=== PATIENT | male | born 1955 | race Caucasian/White ===

== ENCOUNTER → 2017-08-08 | Outpatient (CLI) | payer BC ==
[~2017-08-08] MED LIST: ASPI-435 PO; ATOR-26 PO; NTRSLP4 SL; PANT40TA2 PO; PLV75 PO; TPRSR25 PO
[2017-08-08 13:47] LABS: BASO % 0.4 %; BASO ABS # 0.03 K/uL (0-0.2); COMPLETE YES; EOS % 0.9 %; HEMATOCRIT 42.1 % (42-52); IG% 0.5 %; LYMPH % 29.8 %; LYMPH ABS # 2.21 K/uL (1.2-3.4); MEAN CELL VOLUME 90.7 fL (80-100); MEAN CORPUSCULAR HEMOGLOBIN 30.8 pg (25-34); MEAN PLATELET VOLUME 11.5 fL (7.4-10.4); MONO % 7.3 %; NEUT % 61.1 %; PLATELET COUNT 187 K/uL (130-400); RED BLOOD COUNT 4.64 M/uL (4.7-6.1); WHITE BLOOD COUNT 7.41 K/uL (4.8-10.8)
[2017-08-08 13:56] LABS: ESTIMATED AVERAGE GLUCOSE 108 mg/dl; HA1C FLAG Normal (Normal)
[2017-08-08 15:07] LABS: PROSTATE SPECIFIC ANTIGEN 2.59 ng/ml (0.000-4.000); THYROID STIMULATING HORMONE 1.03 uIu/ml (0.300-4.500); URIC ACID 4.3 mg/dl (2.6-7.2)
[2017-08-08 15:08] LABS: ALB/GLOB RATIO 1.3 (0.9-2); ALKALINE PHOSPHATASE 83 U/L (45-117); ALT/SGPT 53 U/L (12-78); AST/SGOT 25 U/L (15-37); BLOOD UREA NITROGEN 9 mg/dl (7-18); CALCIUM 8.7 mg/dl (8.5-10.1); CARBON DIOXIDE 23 mmol/L (21-32); CHLORIDE 109 mmol/L (98-107); CREATININE 0.71 mg/dl (0.60-1.40); GLUCOSE 99 mg/dl (70-99); POTASSIUM 4.2 mmol/L (3.5-5.1); SODIUM 141 mmol/L (136-145)
== END | disposition home or self-care (01) ==
LOC: C.LABBC 10:44
PROVIDERS: ATTEND Physician Assistant
DX: I25.10 Atherosclerotic heart disease of native coronary artery without angina pectoris (principal); R73.09 Other abnormal glucose; E55.9 Vitamin D deficiency, unspecified; D51.9 Vitamin B12 deficiency anemia, unspecified; E78.9 Disorder of lipoprotein metabolism, unspecified; R53.83 Other fatigue

== ENCOUNTER → 2018-01-14 | Outpatient (CLI) | payer OTHER ==
[2018-01-14 16:02] LABS: BASO % 0.5 %; BASO ABS # 0.05 K/uL (0-0.2); EOS ABS # 0.09 K/uL (0-0.5); HEMATOCRIT 42.1 % (42-52); HEMOGLOBIN 15.1 g/dL (14.0-18.0); IG# 0.04 K/uL (0.00-0.02); LYMPH % 24.3 %; LYMPH ABS # 2.27 K/uL (1.2-3.4); MEAN CELL VOLUME 88.6 fL (80-100); MEAN CORPUSCULAR HEMOGLOBIN 31.8 pg (25-34); MEAN PLATELET VOLUME 11.8 fL (7.4-10.4); MONO % 6.5 %; MONO ABS # 0.61 K/uL (0.11-0.59); NEUT % 67.3 %; NEUT ABS # 6.28 K/uL (1.4-6.5); PLATELET COUNT 206 K/uL (130-400); RED CELL DISTRIBUTION WIDTH CV 12.3 % (11.5-14.5); RED CELL DISTRIBUTION WIDTH SD 39.4 fL (36.4-46.3); WHITE BLOOD COUNT 9.34 K/uL (4.8-10.8)
[2018-01-14 16:20] LABS: MEAN CORPUSCULAR HGB CONC 35.9 g/dl (32-36)
== END | disposition home or self-care (01) ==
LOC: C.LABSPEC 15:41
PROVIDERS: ATTEND Family Medicine
DX: R73.09 Other abnormal glucose (principal); E55.9 Vitamin D deficiency, unspecified; D51.9 Vitamin B12 deficiency anemia, unspecified; E78.9 Disorder of lipoprotein metabolism, unspecified; R53.83 Other fatigue

== ENCOUNTER → 2018-01-14 | Outpatient (CLI) | payer OTHER ==
--- NOTE | 2018-01-14 13:24 | DIAGNOSTIC IMAGING REPORT ---
CHEST 2 VIEWS ROUTINE HISTORY: 63 years-old Male DYSPNEA acute cough with shortness of breath COMPARISON: Chest radiograph 12/16/2015 TECHNIQUE: PA and lateral views of the chest FINDINGS: Cardiomediastinal and hilar silhouettes are within normal limits. There is no pneumothorax, pleural effusion, focal airspace consolidation or overt pulmonary edema. The bones of the chest appear grossly intact. IMPRESSION: No acute process. The above report was generated using voice recognition software. It may contain grammatical, syntax or spelling errors. Electronically signed by: Wood Paredes M.D. 01/14/2018 1:23 PM Dictated Date/Time: 01/14/2018 1:22 PM
== END | disposition home or self-care (01) ==
LOC: C.RAD1850 12:32
PROVIDERS: ATTEND Family Medicine
DX: R06.00 Dyspnea, unspecified (principal)

== ENCOUNTER 2018-01-19 14:26 | Emergency (ER) | payer OTHER ==
[~2018-01-19] VITALS: Ht 177.8 cm; Wt 94.3 kg
[2018-01-19 14:30] VITALS: TEMP 37; Ht 177.8 cm; Wt 94.3 kg
[2018-01-19] MEDS ORDERED: ASPIRIN 81 MG CHEW PO STA (14:45)
[2018-01-19 14:59] LABS: BASO % 0.3 %; BASO ABS # 0.02 K/uL (0-0.2); EOS % 0.9 %; EOS ABS # 0.07 K/uL (0-0.5); HEMATOCRIT 41.2 % (42-52); HEMOGLOBIN 14.3 g/dL (14.0-18.0); IG# 0.03 K/uL (0.00-0.02); LYMPH % 29.6 %; LYMPH ABS # 2.32 K/uL (1.2-3.4); MEAN CORPUSCULAR HEMOGLOBIN 30.6 pg (25-34); MEAN CORPUSCULAR HGB CONC 34.7 g/dl (32-36); MEAN PLATELET VOLUME 10.8 fL (7.4-10.4); MONO % 7.6 %; NEUT % 61.2 %; NEUT ABS # 4.81 K/uL (1.4-6.5); PLATELET COUNT 186 K/uL (130-400); RED CELL DISTRIBUTION WIDTH CV 12.4 % (11.5-14.5); RED CELL DISTRIBUTION WIDTH SD 39.6 fL (36.4-46.3); WHITE BLOOD COUNT 7.85 K/uL (4.8-10.8)
[2018-01-19] MEDS ORDERED: RANI150T85 PO (15:09)
[2018-01-19] MEDS ORDERED: PROB1TAB16 PO (15:09)
[2018-01-19] MEDS ORDERED: CLOP1TAB5 PO (15:09)
[2018-01-19] MEDS ORDERED: VTMB12100 PO (15:09)
[2018-01-19 15:17] LABS: POTASSIUM 3.7 mmol/L (3.5-5.1); SODIUM 140 mmol/L (136-145)
[2018-01-19 15:22] LABS: ALBUMIN 3.7 gm/dl (3.4-5.0); ALT/SGPT 43 U/L (12-78); AST/SGOT 22 U/L (15-37); BLOOD UREA NITROGEN 14 mg/dl (7-18); CARBON DIOXIDE 25 mmol/L (21-32); CREATININE 0.72 mg/dl (0.60-1.40); GLUCOSE 119 mg/dl (70-99)
--- NOTE | 2018-01-19 15:30 | DIAGNOSTIC IMAGING REPORT ---
CHEST ONE VIEW PORTABLE CLINICAL HISTORY: 63 years-old Male presenting with chest pain. TECHNIQUE: Portable upright AP view of the chest was obtained. COMPARISON: 01/14/2018. FINDINGS: Cardiomediastinal silhouette normal. No focal opacity. No large effusion or pneumothorax. Osseous structures normal. Upper abdomen normal. IMPRESSION: 1. No acute cardiopulmonary disease. Electronically signed by: Ming Benavides M.D. 01/19/2018 3:29 PM Dictated Date/Time: 01/19/2018 3:28 PM
[2018-01-19 15:33] LABS: ALKALINE PHOSPHATASE 89 U/L (45-117); TOTAL PROTEIN 6.6 gm/dl (6.4-8.2)
--- NOTE | 2018-01-19 15:38 | EMERGENCY ROOM VISIT NOTE ---
History Report prepared by Xiang: Melanie Cerda Under the Supervision of: Dr. Diane Arcos M.D. First contact with patient: 14:44 Chief Complaint: CARDIAC ASSESSMENT Stated Complaint: FATIGUE, CHEST TIGHTNESS, COUGHING History of Present Illness The patient is a 63 year old male who presents to the Emergency Room for a cardiac assessment. The patient states that he had a heart attack 2 years ago. He reports that he did not experience any chest pain with it and only had shortness of breath. The patient reports that 2 months ago he had a sinus infection and has had a cough since. He reports that the sinus infection has cleared up, but notes he still has post nasal drip that he has had all his life. He states that when he got up this morning he couldn't stop coughing, though it was nonproductive. He reports that since then his face and arms have felt slightly numb and he has had difficulty breathing because his chest feels tight. He reports that he ignored it because this is not unusual for him. He states that after being up for half an hour, he became extremely fatigued. He reports that at this time he went to lie down and then started thinking that he should come get checked out to be safe. He notes that this is not the first time the fatigue has happened and he has seen his PCP for it. He notes that he scheduled an echocardiogram on Sunday for it because his PCP thinks he may have a slight murmur. The patient denies missing his medications this morning, hematochezia, weight loss, taking a Nitroglycerin, and a history of blood clots. He notes that he did take his baby aspirin and blood thinners this morning. Source of History: patient Onset: this morning Position: other (global) Quality: other (tightness) Timing: other (episode) Associated Symptoms: + cough, + SOB, + fatigue, + numbness, No hematochezia Note: The patient denies weight loss. Review of Systems See HPI for pertinent positives & negatives. A total of 10 systems reviewed and were otherwise negative. Past Medical & Surgical Medical Problems: (1) Acute MT (2) Anal fissure (3) Back spasm (4) Constipation (5) Dyslipidemia (6) Flank pain (7) Flank pain (8) GERD (gastroesophageal reflux disease) (9) Hypokalemia (10) Hypomagnesemia (11) Kidney stone (12) Kidney stone (13) Kidney stone (14) Liver cyst (15) Metabolic acidosis (16) Seasonal allergies (17) Vasovagal syncope Family History Cancer Diabetes mellitus FH: seizures Gallbladder disease Malignancy Social History Smoking Status: Former Smoker Alcohol Use: occasionally Marital Status: Housing Status: lives with significant other Occupation Status: employed Current/Historical Medications Scheduled Aspirin (Aspirin 81), 81 MG PO DAILY Atorvastatin (Lipitor), 80 MG PO DAILY Clopidogrel Bisulfate (Plavix), 75 MG PO DAILY Cyanocobalamin (Vitamin B-12), 1 TAB PO DAILY Probiotic Product (Probiotic), 1 TAB PO DAILY Ranitidine (Zantac), 150 MG PO BID Scheduled PRN Nitroglycerin (Nitrostat), 0.4 MG SL UD PRN for Chest Pain Allergies Coded Allergies: No Known Allergies (Unverified , 01/19/18) Physical Exam Vital Signs Date Time Temp Pulse Resp B/P (MAP) Pulse Ox O2 Delivery O2 Flow Rate FiO2 01/19/18 18:01 77 20 124/86 100 01/19/18 17:05 108/66 01/19/18 16:56 66 5 01/19/18 16:26 69 12 97 01/19/18 15:56 64 9 96 01/19/18 15:26 69 19 94 01/19/18 14:56 73 11 94 01/19/18 14:39 72 01/19/18 14:37 131/73 01/19/18 14:30 37.0 79 18 132/73 97 Room Air Physical Exam Vital signs reviewed. General: Well-appearing, in no significant distress. HEENT: No scleral icterus, PERRLA, neck supple. Atraumatic. Cardiovascular: Regular rate and rhythm, no extra sounds. Pulmonary: Clear to auscultation bilaterally, normal work of breathing. Abdomen: Soft, nontender, nondistended, positive bowel sounds. Musculoskeletal: Atraumatic, no peripheral edema. Neurologic: Patient awake alert and oriented x 3, full strength in all 4 extremities. Cranial nerves 2 through 12 grossly intact. Skin: Warm, dry, no rash Medical Decision & Procedures ER Provider Diagnostic Interpretation: Radiology results as stated below per my review and radiologist interpretation: CHEST ONE VIEW PORTABLE CLINICAL HISTORY: 63 years-old Male presenting with chest pain. TECHNIQUE: Portable upright AP view of the chest was obtained. COMPARISON: 01/14/2018. FINDINGS: Cardiomediastinal silhouette normal. No focal opacity. No large effusion or pneumothorax. Osseous structures normal. Upper abdomen normal. IMPRESSION: 1. No acute cardiopulmonary disease. Electronically signed by: Ming Benavides M.D. 01/19/2018 3:29 PM Dictated Date/Time: 01/19/2018 3:28 PM Laboratory Results 01/19/18 14:50 Red Blood Count 4.68, Mean Corpuscular Volume 88.0, Mean Corpuscular Hemoglobin 30.6, Mean Corpuscular Hemoglobin Concent 34.7, Mean Platelet Volume 10.8, Neutrophils (%) (Auto) 61.2, Lymphocytes (%) (Auto) 29.6, Monocytes (%) (Auto) 7.6, Eosinophils (%) (Auto) 0.9, Basophils (%) (Auto) 0.3, Neutrophils # (Auto) 4.81, Lymphocytes # (Auto) 2.32, Monocytes # (Auto) 0.60, Eosinophils # (Auto) 0.07, Basophils # (Auto) 0.02 01/19/18 14:50 Test 01/19/18 14:50 01/19/18 16:39 White Blood Count 7.85 K/uL (4.8-10.8) Red Blood Count 4.68 M/uL (4.7-6.1) Hemoglobin 14.3 g/dL (14.0-18.0) Hematocrit 41.2 % (42-52) Mean Corpuscular Volume 88.0 fL (80-100) Mean Corpuscular Hemoglobin 30.6 pg (25-34) Mean Corpuscular Hemoglobin Concent 34.7 g/dl (32-36) Platelet Count 186 K/uL (130-400) Mean Platelet Volume 10.8 fL (7.4-10.4) Neutrophils (%) (Auto) 61.2 % Lymphocytes (%) (Auto) 29.6 % Monocytes (%) (Auto) 7.6 % Eosinophils (%) (Auto) 0.9 % Basophils (%) (Auto) 0.3 % Neutrophils # (Auto) 4.81 K/uL (1.4-6.5) Lymphocytes # (Auto) 2.32 K/uL (1.2-3.4) Monocytes # (Auto) 0.60 K/uL (0.11-0.59) Eosinophils # (Auto) 0.07 K/uL (0-0.5) Basophils # (Auto) 0.02 K/uL (0-0.2) RDW Standard Deviation 39.6 fL (36.4-46.3) RDW Coefficient of Variation 12.4 % (11.5-14.5) Immature Granulocyte % (Auto) 0.4 % Immature Granulocyte # (Auto) 0.03 K/uL (0.00-0.02) Anion Gap 6.0 mmol/L (3-11) Est Creatinine Clear Calc Drug Dose 124.2 ml/min Estimated GFR () 116.7 Estimated GFR (Non- 100.7 BUN/Creatinine Ratio 18.7 (10-20) Calcium Level 8.0 mg/dl (8.5-10.1) Total Bilirubin 0.5 mg/dl (0.2-1) Direct Bilirubin 0.1 mg/dl (0-0.2) Aspartate Amino Transf (AST/SGOT) 22 U/L (15-37) Alanine Aminotransferase (ALT/SGPT) 43 U/L (12-78) Alkaline Phosphatase 89 U/L (45-117) Total Creatine Kinase 69 U/L (39-308) Total Protein 6.6 gm/dl (6.4-8.2) Albumin 3.7 gm/dl (3.4-5.0) Thyroid Stimulating Hormone (TSH) 0.696 uIu/ml (0.300-4.500) Troponin I < 0.015 ng/ml (0-0.045) Laboratory results per my review. Medications Administered Medications (Trade) Dose Ordered Sig/Ana Route Start Time Stop Time Status Last Admin Dose Admin Aspirin (Aspirin Chew) 243 mg NOW STAT PO 01/19/18 14:45 01/19/18 14:47 DC 01/19/18 15:04 243 MG Albuterol (Ventolin Hfa Inhaler) 2 puffs NOW ONCE INH 01/19/18 16:30 01/19/18 16:31 DC 01/19/18 17:07 2 PUFFS ECG Per My Interpretation Indication: SOB/dyspnea Rate (beats per minute): 71 Findings: no acute ischemic change, no ectopy, other (qt-c [id number]) ED Course 1452: Past medical records reviewed. The patient was evaluated in room C8. A complete history and physical examination was performed. 1445: Ordered Aspirin 243 mg PO. 1625: I reevaluated the patient and updated him on his results. I notified him we are going to get a repeat troponin. 1630: Ordered Albuterol 2 puffs INH. 1732: Upon reevaluation, the patient appeared to have improvement of his symptoms. I discussed findings with him. He verbalized agreement of the treatment plan. The patient was discharged home. Medical Decision Differential diagnosis: Etiologies such as cardiac ischemia, aortic dissection, pulmonary embolism, pneumonia, pneumothorax, musculoskeletal, infections, pericarditis, myocarditis , esophageal rupture, gastrointestinal, as well as others were entertained. This patient was evaluated and appeared to be in no significant distress. He was given 3 baby aspirin as he does take 1 daily. Patient's chest x-ray was obtained and is clear. EKG reveals no evidence of acute ischemia. Troponin is negative 2. TSH is normal. I do suspect the patient is having difficulty with sleep apnea which may explain his fatigue periodically. He does have a remote history of smoking however there is no evidence of mass on chest x-ray. Patient may be suffering from postnasal drip, reactive airway disease or GERD as an etiology to his cough. Patient has follow-up with his PCP and a stress test scheduled in several days. He was advised against strenuous exercise until he has the stress test performed. He was discharged with an albuterol inhaler to be used 2 puffs every 4 hours as needed for cough or wheezing. The patient will return to the emergency department for worsening of symptoms or any medical concerns. Medication Reconcilliation Current Medication List: was personally reviewed by me Blood Pressure Screening Patient's blood pressure: Normal blood pressure Blood pressure disposition: Did not require urgent referral Impression Primary Impression: CAD (coronary artery disease) Additional Impressions: Fatigue Cough Scribe Attestation The scribe's documentation has been prepared under my direction and personally reviewed by me in its entirety. I confirm that the note above accurately reflects all work, treatment, procedures, and medical decision making performed by me. Departure Information Dispostion Home / Self-Care Referrals Kapil Connell M.D. (PCP) Forms IMPORTANT VISIT INFORMATION Patient Instructions My [facility] Additional Instructions Diagnosis: Fatigue, coronary artery disease Please follow-up for your stress test on Sunday as scheduled. Continue your medications as prescribed. Contact your primary care physician for reevaluation. Please consider a sleep study and/or pulmonary function tests. Albuterol 2 puffs every 4 hours as needed for cough or shortness of breath. Return to the emergency department for worsening of symptoms or any medical concerns. Problem Qualifiers
[2018-01-19] MEDS ORDERED: ALBUTEROL HFA 8 GM INHALER INH ONE (16:30)
[2018-01-19 18:01] VITALS: BP 124/86; PULSE 77; O2SAT 100
== END 2018-01-19 18:02 | disposition home or self-care (01) ==
LOC: C.EDB 14:27 → C.EDC 18:02
DX: I25.10 Atherosclerotic heart disease of native coronary artery without angina pectoris (principal); R53.83 Other fatigue; R05 Cough; K21.9 Gastro-esophageal reflux disease without esophagitis; E87.6 Hypokalemia; I25.2 Old myocardial infarction; E78.5 Hyperlipidemia, unspecified; E83.42 Hypomagnesemia; Z87.891 Personal history of nicotine dependence; Z79.82 Long term (current) use of aspirin; Z79.02 Long term (current) use of antithrombotics/antiplatelets; Z79.899 Other long term (current) drug therapy

== ENCOUNTER → 2018-01-21 | Outpatient (CLI) | payer OTHER ==
[~2018-01-21] MED LIST changes: +CLOP1TAB5 PO; +PROB1TAB16 PO; +RANI150T85 PO; +VTMB12100 PO
--- NOTE | 2018-01-21 17:15 | ECHOCARDIOGRAM REPORT ---
*NOTICE TO RECEIVING DEMOCRAT AGENCY This information is strictly Confidential and protected under [place] law. [place] law prohibits you from making any further disclosure of this information unless further disclosure is expressly permitted by the written consent of the person to whom it pertains or is authorized by law. A general authorization for the release of medical or other information is not sufficient for this purpose. Hospital accepts no responsibility if the information is made available to any other person, INCLUDING THE PATIENT. Interpretation Summary * Name: PEÑA SAMANO Study Date: 01/21/2018 02:10 PM BP: 119/73 mmHg * Patient Location: [facility] HR: 80 * : 1955 (M/d/yyyy) Gender: Male Height: 70 in * Age: 63 yrs Ethnicity: CA Weight: 205 lb * Ordering Physician: Kapil Connell MD * Performed By: Dai Mayen RDCS * * Reason For Study: Shortness of breath, murmur * BSA: 2.1 m2 * -- Conclusions -- * Left ventricular systolic function is normal. * Diastolic dysfunction, Grade II (pseudonormalization pattern). * Right ventricular systolic pressure is normal. * Compared to an echocardiogram from 12/16/2015, there is stage II diastolic dysfunction, but no significant valvular disease or other changes. Procedure Details * A complete two-dimensional transthoracic echocardiogram was performed (2D, M-mode, Doppler and color flow Doppler). Left Ventricle * The left ventricle is normal in size. * There is normal left ventricular wall thickness. * Ejection Fraction = 60-65%. * Left ventricular systolic function is normal. * Diastolic dysfunction, Grade II (pseudonormalization pattern). * The left ventricular wall motion is normal. Right Ventricle * The right ventricle is normal in size and function. * The right ventricular systolic function is normal as assessed by tricuspid annular plane systolic excursion (TAPSE) (normal >1.5 cm). Atria * The left atrial size is normal. * Right atrial size is normal. Mitral Valve * The mitral valve is grossly normal. * Significant mitral regurgitation is absent. Tricuspid Valve * The tricuspid valve is not well visualized, but is grossly normal. * There is trace tricuspid regurgitation. * Right ventricular systolic pressure is normal. Aortic Valve * The aortic valve is normal in structure and function. * The aortic valve is trileaflet. * No hemodynamically significant valvular aortic stenosis. * There is no significant aortic regurgitation. Pulmonic Valve * The pulmonic valve is not well visualized. Pericardium/Pleural * There is no pericardial effusion. MMode 2D Measurements and Calculations IVSd 1.1 cm LVIDd 4.3 cm LVIDs 2.8 cm LVPWd 0.96 cm IVS/LVPW 1.1 FS 34.9 % EDV(Teich) 81.6 ml ESV(Teich) 29.0 ml EF(Teich) 64.5 % EDV(cubed) 77.7 ml ESV(cubed) 21.4 ml EF(cubed) 72.4 % LV mass(C)d 145.7 grams LV mass(C)dI 69.1 grams/m\S\2 SV(Teich) 52.6 ml SI(Teich) 24.9 ml/m\S\2 SV(cubed) 56.3 ml SI(cubed) 26.7 ml/m\S\2 Ao root diam 3.5 cm Ao root area 9.9 cm\S\2 ACS 2.2 cm LA dimension 3.1 cm asc Aorta Diam 3.0 cm LA/Ao 0.87 LVOT diam 2.0 cm LVOT area 3.1 cm\S\2 LVAd ap4 23.7 cm\S\2 LVLd ap4 7.5 cm EDV(MOD-sp4) 61.1 ml EDV(sp4-el) 63.2 ml LVAs ap4 13.3 cm\S\2 LVLs ap4 6.8 cm ESV(MOD-sp4) 21.6 ml ESV(sp4-el) 22.0 ml EF(MOD-sp4) 64.7 % EF(sp4-el) 65.3 % LVAd ap2 23.7 cm\S\2 LVLd ap2 7.8 cm EDV(MOD-sp2) 59.8 ml EDV(sp2-el) 60.7 ml LVAs ap2 12.7 cm\S\2 LVLs ap2 6.5 cm ESV(MOD-sp2) 20.5 ml ESV(sp2-el) 21.0 ml EF(MOD-sp2) 65.7 % EF(sp2-el) 65.4 % LVLd %diff 3.6 % EDV(MOD-bp) 62.1 ml LVLs %diff -4.80 % ESV(MOD-bp) 21.1 ml EF(MOD-bp) 66.0 % SV(MOD-sp4) 39.6 ml SI(MOD-sp4) 18.8 ml/m\S\2 SV(MOD-sp2) 39.3 ml SI(MOD-sp2) 18.7 ml/m\S\2 SV(MOD-bp) 41.0 ml SI(MOD-bp) 19.4 ml/m\S\2 SV(sp4-el) 41.3 ml SI(sp4-el) 19.6 ml/m\S\2 SV(sp2-el) 39.7 ml SI(sp2-el) 18.8 ml/m\S\2 Doppler Measurements and Calculations MV E max randall 85.9 cm/sec MV A max randall 78.1 cm/sec MV E/A 1.1 MV dec time 0.19 sec Ao V2 max 132.0 cm/sec Ao max PG 7.0 mmHg Ao max PG (full) 2.3 mmHg LAVINIA(V,A) 2.6 cm\S\2 LAVINIA(V,D) 2.6 cm\S\2 LV V1 max PG 4.7 mmHg LV V1 max 108.2 cm/sec PA V2 max 138.5 cm/sec PA max PG 7.7 mmHg PA acc slope 557.6 cm/sec\S\2 PA acc time 0.15 sec TR max randall 93.0 cm/sec PA pr(Accel) 12.5 mmHg
== END | disposition home or self-care (01) ==
LOC: C.CPL 13:53
PROVIDERS: ATTEND Family Medicine
DX: R06.02 Shortness of breath (principal); R01.1 Cardiac murmur, unspecified

== ENCOUNTER 2025-08-29 13:42 | Observation (INO) ==
--- NOTE | 2025-08-29 13:58 | Emergency Department Note ---
Impression & Plan Dark stools, Anemia ED Provider Note NAME: PEÑA SAMANO AGE: 70 SEX: M : 1955 ARRIVES VIA: Walk-In INFORMANT: Patient ED PROVIDER(S): Selvin Kraft DO CHIEF COMPLAINT: Black/purple stools HPI: Patient is a 70-year-old male who takes Plavix with a past medical history of migraines, CAD, dyslipidemia who presents to the ER for dark black stools. Patient notes that this has been present since this past Sunday and . Denies any headache or change in vision. No chest pain or shortness of breath. No nausea, vomiting, or diarrhea. No dysuria, urgency, or frequency. No other exacerbating or remitting factors. He has never had this before. He has had a colonoscopy and EGD previously which were fairly unremarkable. No history of liver failure or cirrhosis or varices per patient. ADDITIONAL HISTORY OBTAINED: Per HPI Chronic Medical/Social Conditions Affecting Care: Per HPI PAST MEDICAL HISTORY:See Below PAST SURGICAL HISTORY:See Below FAMILY HISTORY:See Below SOCIAL HISTORY:See Below HOME MEDICATIONS:See Below ALLERGIES:See Below VITALS:See Below PHYSICAL EXAMINATION: GENERAL: Sitting up in bed, alert, well appearing, well nourished, no distress, non-toxic EYE EXAM: normal conjunctiva. PERRL and EOM's grossly intact. OROPHARYNX: no exudate, no erythema, lips, buccal mucosa, and tongue normal and mucous membranes are moist NECK: supple, no nuchal rigidity, no adenopathy, non-tender LUNGS: Clear to auscultation. Normal chest wall mechanics HEART: no murmurs, S1 normal and S2 normal ABDOMEN: abdomen soft, non-tender, normo-active bowel sounds, no masses, no rebound or guarding. UPPER EXTREMITIES: upper extremities are grossly normal. LOWER EXTREMITIES: No pitting edema. NEURO EXAM: Normal sensorium, cranial nerves II-XII grossly intact, normal speech, no gross weakness of arms, no gross weakness of legs. MEDICAL DECISION MAKING: Patient is a 70-year-old male who presents ER for the above-stated complaint. IV was established blood work was obtained. Labs showed no significant leukocytosis. Hemoglobin down to 12.8 from 15 in mid April. BMP along LFTs bilirubin and lipase is unremarkable. UA was negative. Patient was typed and screened. He had no belly pain but CT abdomen pelvis was obtained. Upon my review I saw no acute pathology. Did discuss case with the hospitalist for further evaluation management treatment. Was placed on a Protonix drip and bolus. He did stop Plavix. Consults/Care Managements Discussions: Per [facility] Triage Nursing notes reviewed. Limited review of prior medical records performed Vital Signs: reviewed and remarkable for no significant abnormalities Differential diagnosis: Diverticulosis, AVM, coagulopathy, colitis, inflammatory bowel disease, malignancy, Peggy-Multani tear, esophagitis, peptic ulcer disease, variceal bleed, gastritis, epistaxis, fissure, hemorrhoids, as well as other pathologies. ER treatment provided: See below Diagnostics interpreted by me include EKG and cardiac monitoring as listed below: -Cardiac Monitoring: An order was placed for continuous cardiac monitoring. The monitor shows a rate of 80 with sinus rhythm. -ECG: none -Laboratory studies:Interpreted by me as stated above in MDM and shown below. Imaging studies: Xrays: As interpreted by me:none CTs show: CT abdomen pelvis per my pleurae interpretation showed no obvious bowel obstruction Procedures:none Critical Care: None Past Med/Surg History Problem List (Updated 08/29/25 @ 17:01 by Selvin Kraft DO) Anemia (Acute) Dark stools (Acute) Hyperlipidemia Encounter for general adult medical examination with abnormal findings Prostate cancer (Chronic 02/03/25) Migraine without aura Cervical disc disease Vitamin deficiency Headache Occipital neuralgia Facial paresthesia Frequent headaches Cognitive dysfunction Atypical nevus Elevated PSA (Chronic) Chronic rhinosinusitis Dyslipidemia Obstructive sleep apnea CAD (coronary artery disease) (Acute) Seasonal allergies GERD (gastroesophageal reflux disease) Vitamin D deficiency Medical History Deviated septum Alopecia Kidney stone Scoliosis History of VA (myocardial infarction) Cognitive dysfunction History of elevated PSA Hx of melanoma of skin Occipital neuralgia CAD (coronary artery disease) Facial paresthesia Hx of gastroesophageal reflux (GERD) Frequent headaches ASHER (obstructive sleep apnea) Dyslipidemia Allergic rhinitis Chronic sinusitis Dysfunction of both eustachian tubes Orthostatic lightheadedness Postnasal drip Myocardial infarction Surgical History History of surgery Hx of melanoma excision History of esophagogastroduodenoscopy (EGD) Hx of colonoscopy S/P coronary artery stent placement Family History Mother Pneumonia Diabetes Father Thymic carcinoma Brother Melanoma Scleroderma Sister No problems noted. Son No problems noted. Daughter No problems noted. Other Cancer Denies family history of Coronary heart disease Social History (Updated 06/02/25 @ 12:49 by Ros Munoz) Smoking Status: Never smoker Tobacco Type: Cigarettes Age Started Using Tobacco: 16; Age Quit Using Tobacco: 42; packs per day: 0.25; Second Hand Exposure: Yes (hx growing up); Do You Dip or Chew Tobacco: No; Hx Alcohol Use: Yes (1-2 drinks/day) Alcohol type: beer and hard liquor Alcohol Intake Frequency: 4 or More x per/Week Hx Substance Use: No Preferred Language: Nigerian Communication Ability: Effective Visual Impairment: Limited Hearing Ability: Normal Music Assistant Required: No Beliefs That Will Affect Care: None marital status: Current Living Situation: Alone current occupational status: employed 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[employer] How 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 Children do You have: 2 How many Children do You have Comment: 1 step child other: Professor,[employer],Engineering Feels Safe at Home: Yes Childhood Exposure to Second-Hand Smoke: Yes Diet: regular caffeine: Yes during the past year weight has: remained stable Dental Care, Regularly: Yes Physical Activity Frequency: Daily Seatbelt Use: always Sunscreen Use: Yes Assistive Devices: CPAP, Glasses and Other Allergies Allergies Allergy/AdvReac Type Severity Reaction Status Date / Time No Known Drug Allergies Allergy Unknown Verified 08/29/25 16:18 seasonal AdvReac Mild Congested Uncoded 08/29/25 16:18 Home Meds Home Medications Medication Instructions Recorded Confirmed fluticasone propionate 50 1 sprays intranasal HS 07/17/19 08/29/25 mcg/actuation nasal spray,suspension cholecalciferol (vitamin D3) 50 50 mcg PO QAM 05/18/22 08/29/25 mcg (2,000 unit) capsule oxymetazoline 0.05 % nasal spray 2 spray intranasal Q12H PRN 09/04/22 08/29/25 (Afrin (oxymetazoline)) Congestion aspirin 81 mg tablet,delayed 81 mg PO QAM 08/28/24 08/29/25 release famotidine 20 mg tablet (Pepcid) 20 mg PO DAILY PRN Heartburn 05/06/25 08/29/25 Lactobacillus acidophilus 10 10,000 mmu cells PO 3XWK 08/29/25 08/29/25 billion cell capsule (Probiotic) clopidogrel 75 mg tablet 75 mg PO QAM 08/29/25 08/29/25 coenzyme Q10 100 mg capsule 100 mg PO DAILY 08/29/25 08/29/25 cyanocobalamin (vitamin B-12) 1,000 mcg PO QAM 08/29/25 08/29/25 1,000 mcg tablet (Vitamin B-12) magnesium oxide 400 mg PO QAM 08/29/25 08/29/25 omega-3 fatty acids 1,000 mg 1,000 mg PO QAM 08/29/25 08/29/25 capsule pseudoephedrine HCl 60 mg tablet 60 mg PO DAILY PRN Congestion 08/29/25 08/29/25 rosuvastatin 40 mg tablet 40 mg PO QAM 08/29/25 08/29/25 Previous Rx's Medication Instructions Recorded nitroglycerin 0.4 mg sublingual 0.4 mg sublingual Q5M PRN chest 08/25/24 tablet pain #40 tabs Results & Data (ED) Vital Signs Vital Signs - 24 hr 08/29/25 13:43 08/29/25 13:55 08/29/25 15:45 Temperature 36.4 C L Temperature Source Temporal Artery Scan Pulse Rate 80 69 Pulse Rate from SpO2 Sensor 69 Respiratory Rate 18 16 Respiratory Effort / Characteristics Non-Labored Spontaneous Respiratory Depth Normal Respiratory Pattern Regular Blood Pressure 126/84 132/83 Blood Pressure Mean 98 99 Pulse Oximetry 98 98 Oxygen Delivery Method Room Air Room Air Room Air Sepsis Recent Fever Within 48 Hours No Sepsis New/Unexplained Change in Mental Status N/A Sepsis Action Taken by Nursing No Action Required 08/29/25 15:50 08/29/25 16:00 Temperature Temperature Source Pulse Rate 68 70 Pulse Rate from SpO2 Sensor 69 Respiratory Rate 20 Respiratory Effort / Characteristics Respiratory Depth Respiratory Pattern Blood Pressure 121/78 Blood Pressure Mean 92 Pulse Oximetry 98 Oxygen Delivery Method Room Air Sepsis Recent Fever Within 48 Hours Sepsis New/Unexplained Change in Mental Status Sepsis Action Taken by Nursing Laboratory Data 08/29/25 14:16 08/29/25 14:16 Lab Results 08/29/25 08/29/25 Range/Units 14:16 15:05 WBC 9.34 (4.8-10.8) K/ul RBC 4.19 L (4.70-6.10) M/uL Hgb 12.8 L (14.0-18.0) g/dL Hct 37.8 L (42.0-52.0) % MCV 90.2 (80.0-100.0) fL MCH 30.5 (25.0-34.0) pg MCHC 33.9 (32.0-36.0) g/dL RDW Std Deviation 39.9 (36.4-46.3) fL RDW Coeff of Pamela 12.3 (11.5-14.5) % Plt Count 195 (130-400) K/uL MPV 11.3 (9.4-12.4) fL Immature Gran % (Auto) 0.3 % Neut % (Auto) 60.9 % Lymph % (Auto) 29.6 % [place] % (Auto) 7.6 % Eos % (Auto) 1.0 % Baso % (Auto) 0.6 % Neut # (Auto) 5.69 (1.40-6.50) K/uL Lymph # (Auto) 2.76 (1.20-3.40) K/uL [place] # (Auto) 0.71 H (0.11-0.59) K/uL Eos # (Auto) 0.09 (0.00-0.50) K/uL Baso # (Auto) 0.06 (0.00-0.20) K/uL Immature Gran # (Auto) 0.03 (0.01-0.20) K/uL Sodium 139 (136-145) mmol/L Potassium 3.7 (3.5-5.1) mmol/L Chloride 106 (98-107) mmol/L Carbon Dioxide 26 (21-32) mmol/L Anion Gap 7 (3-11) BUN 14 (6-23) mg/dl Creatinine 0.74 (0.6-1.4) mg/dl Est Cr Clr Drug Dosing 109.2 ml/min eGFR 98.70 BUN/Creatinine Ratio 18.9 (10-20) Glucose 101 H (70-99(Fasting)) mg/dl Calcium 8.6 (8.6-10.3) mg/dl Total Bilirubin 0.5 (0.2-1.0) mg/dl AST 18 (13-39) U/L ALT 17 (7-52) U/L Alkaline Phosphatase 53 (34-104) U/L Total Protein 6.1 (6.0-8.3) gm/dl Albumin 4.2 (3.4-5.0) gm/dl Globulin 1.9 L (2.5-4.0) gm/dl Albumin/Globulin Ratio 2.2 H (0.9-2) Lipase 80 (11-82) U/L Urine Color Yellow Urine Appearance Clear (Clear) Urine pH 7.0 (4.5-7.5) Ur Specific [place] 1.010 (1.000-1.030) Urine Protein Negative (Negative) Urine Glucose (UA) Negative (Negative) Urine Ketones Negative (Negative) Urine Blood Negative (Negative) Urine Nitrite Negative (Negative) Urine Bilirubin Negative (Negative) Urine Urobilinogen Negative (Negative) Ur Leukocyte Esterase Negative (Negative) Urine Comment Administered Medications Discontinued Medications Sodium Chloride (Nss) 1,000 mls @ 999 mls/hr IV .Q1H1M ONE Stop: 08/29/25 14:55 Last Infusion: 08/29/25 15:25 Dose: Infused Documented By: Admin: 08/29/25 14:23 Dose: 999 mls/hr Documented By: DAVIDA Pantoprazole Sodium 80 mg/ (Dextrose) 120 mls @ 480 mls/hr IV NOW ONE Stop: 08/29/25 16:10 Last Infusion: 08/29/25 16:44 Dose: Infused Documented By: Admin: 08/29/25 16:27 Dose: 480 mls/hr Documented By: TIM Ioversol (Optiray 320 100ml) 93 ml IV ONCE ONE Stop: 08/29/25 15:37 Last Admin: 08/29/25 15:37 Dose: 93 ml Documented By: PLW Discharge Plan Visit Data Chief Complaint: Rectal Bleed Stated Complaint: BLOOD IN STOOL ED Provider: Selvin Kraft Discharge Problem: Dark stools, Anemia Condition: Serious Forms Stand Alone Forms[facility] Pres[facility] Prescriptions: No Action famotidine [Pepcid] 20 mg tablet 20 mg PO DAILY PRN (Reason: Heartburn) nitroglycerin 0.4 mg tablet, sublingual 0.4 mg SL Q5M PRN (Reason: chest pain) Qty: 40 3RF Rx Instructions: PLACE ONE TABLET UNDER THE TONGUE EVERY 5 MINUTES FOR UP TO 3 DOSES NEEDED FOR CHEST PAIN fluticasone propionate 50 mcg/actuation spray,suspension 1 sprays INTNAS HS cholecalciferol (vitamin D3) 50 mcg (2,000 unit) capsule 50 mcg PO QAM oxymetazoline [Afrin (oxymetazoline)] 0.05 % spray,non-aerosol 2 spray intranasal Q12H PRN (Reason: Congestion) clopidogrel 75 mg tablet 75 mg PO QAM rosuvastatin 40 mg tablet 40 mg PO QAM coenzyme Q10 100 mg Capsule 100 mg PO DAILY Lactobacillus acidophilus [Probiotic] 10 billion cell Capsule 10,000 mmu cells PO 3XWK magnesium oxide 400 mg magnesium tablet 400 mg PO QAM omega-3 fatty acids 1,000 mg Capsule 1,000 mg PO QAM cyanocobalamin (vitamin B-12) [Vitamin B-12] 1,000 mcg Tablet 1,000 mcg PO QAM pseudoephedrine HCl [Sudafed] 60 mg Tablet 60 mg PO DAILY PRN (Reason: Congestion) aspirin 81 mg tablet,delayed release (DR/EC) 81 mg PO QAM Referrals Referrals: Kapil Connell MD [Primary Care Provider] - Discharge Problem: Anemia Qualifiers: Anemia type: unspecified type Qualified Code(s): D64.9 - Anemia, unspecified
[2025-08-29] MEDS: SODIUM CHLORIDE 0.9% 1,000 ML IV ONE (14:23)
[2025-08-29 14:42] LABS: Hematocrit (blood only) 37.8 % (42.0-52.0); Hemoglobin 12.8 g/dL (14.0-18.0); Immature Granulocytes # (auto) 0.03 K/uL (0.01-0.20); Immature Granulocytes % (auto) 0.3 %; Mean Corpuscular Hemoglobin 30.5 pg (25.0-34.0); Mean Corpuscular Volume 90.2 fL (80.0-100.0); Platelet Count 195 K/uL (130-400); RDW Standard Deviation 39.9 fL (36.4-46.3); Red Blood Count 4.19 M/uL (4.70-6.10); White Blood Count 9.34 K/ul (4.8-10.8)
[2025-08-29 15:00] LABS: Alanine Aminotransferase 17.0 U/L (7-52); Albumin Globulin Ratio 2.2 (0.9-2); Albumin Level 4.2 gm/dl (3.4-5.0); Alkaline Phosphatase 53.0 U/L (34-104); Anion Gap 7.0 (3-11); Bilirubin,Total 0.5 mg/dl (0.2-1.0); Blood Urea Nitrogen 14.0 mg/dl (6-23); Calcium 8.6 mg/dl (8.6-10.3); Carbon Dioxide 26.0 mmol/L (21-32); Chloride 106.0 mmol/L (98-107); Creatinine Clr Calc Pharmacy 109.2 ml/min; Globulin 1.9 gm/dl (2.5-4.0); Glucose 101.0 mg/dl (70-99(Fasting)); Lipase 80.0 U/L (11-82); Potassium 3.7 mmol/L (3.5-5.1); Sodium 139.0 mmol/L (136-145); Total Protein 6.1 gm/dl (6.0-8.3)
[2025-08-29] MEDS: OPTIRAY 320 100ml IV ONE (15:37)
[2025-08-29 15:47] LABS: Appearance Urine Clear (Clear); Glucose Urine UA Negative (Negative)
--- NOTE | 2025-08-29 16:20 | History & Physical Report ---
Date of Service August 29, 2025 Assessment & Plan (1) Dark stools: (2) Anemia: (3) Prostate cancer: (4) Migraine without aura: (5) Dyslipidemia: (6) Obstructive sleep apnea: (7) CAD (coronary artery disease): (8) Hx of melanoma of skin: (9) CAD (coronary artery disease): (10) Hx of gastroesophageal reflux (GERD): Plan #Acute GI bleed #chronic anticoagulation - Started 2-3 days ago. He has never had this in the past. Several risk factors for upper GI bleed, recent increase in Aleve use, occasional alcohol exposure. On both aspirin and Plavix chronically. - Serial hemoglobin every 6 hours - Protonix loading dose and drip initiated, n.p.o. status.-type and screen sent. - Admit, PCU telemetry, routine initial upper GI bleed bundle and order set - N.p.o. - Consult to gastroenterology #History of coronary disease - Left diagonal stenting with residual disease in 2016, long-term Plavix and aspirin - Stable for many years, able to complete 4 METS without difficulty, no recent change in exercise or stamina - Hold Plavix and aspirin for the short-term, consult to cardiology for assistance with anticoagulation #GERD - hold famotidine, Protonix as above #Hyperlipidemia -Will resume statin once he is not n.p.o. #History of prostate cancer - Low-grade, following with oncology, no further evaluation necessary at this time #Migraine without aura -Asymptomatic, not on a preventative medication at this time, initiate Tylenol if needed, Ultram versus oxycodone if needed #ASHER -He does use CPAP at home. He states it is not unusual for him to go several days without. Order placed for him to use his home machine if he wants #FEN - n.p.o., NS at 80 cc/h overnight #Prophylaxis -SCDs #CODE STATUS -Full code per his wishes, reviewed with patient at the bedside at the time of admission History of Present Illness Chief Complaint: Dark Stools Primary Care Provider: Kapil Connell MD 70-year-old male history of coronary disease status post drug-eluting stent to the left prominent LAD diagonal in 2016., Hyperlipidemia, prostate cancer, obstructive sleep apnea migraine, DJD of the cervical spine, history of melanoma on long-term antiplatelet therapy for coronary disease presents with a 2 to 3- day history of "goopy dark stool" recently traveled to the . Notes that it has been very sticky. Seems to be getting looser and looser. Denies any chest pain palpitations or shortness of breath, he reports that he called into the positional and was told to go to the emergency department. Hemoglobin showed a 3 point decline compared to his baseline. He was loaded with Protonix, drip was initiated. Imaging completed, was referred for admission serial hemoglobin given concern for acute gastrointestinal hemorrhage. Additional relevant history: Patient states he has never had a GIB in the past has been on Plavix and aspirin since his stenting in 2016 no recent reevaluations or intervention from a cardiac standpoint he is physically active able to easily complete 4 METS with no shortness of breath. Has had no problem holding his Plavix for procedures in the past. Has been under quite a bit of stress over the last several weeks. Traveling to [place] and then to [place] for work from [place] [employer]. Had some back pain several weeks ago and was taking more Aleve than usual. Continued to take his aspirin. Has had some scattered alcoholic beverages from beers to cocktail but never more than 1 or 2 in a setting. No tobacco exposure. He has had no pain at any point in the last several days stools have been increasingly melanotic as noted above. Allergies Allergy/AdvReac Type Severity Reaction Status Date / Time No Known Drug Allergies Allergy Unknown Verified 08/29/25 16:18 seasonal AdvReac Mild Congested Uncoded 08/29/25 16:18 Home Medications Medication Instructions Recorded Confirmed Type fluticasone propionate 50 1 sprays intranasal HS 07/17/19 08/29/25 History mcg/actuation nasal spray,suspension cholecalciferol (vitamin D3) 50 50 mcg PO QAM 05/18/22 08/29/25 History mcg (2,000 unit) capsule oxymetazoline 0.05 % nasal spray 2 spray intranasal Q12H PRN 09/04/22 08/29/25 History (Afrin (oxymetazoline)) Congestion nitroglycerin 0.4 mg sublingual 0.4 mg sublingual Q5M PRN chest 08/25/24 08/29/25 Rx tablet pain #40 tabs aspirin 81 mg tablet,delayed 81 mg PO QAM 08/28/24 08/29/25 History release famotidine 20 mg tablet (Pepcid) 20 mg PO DAILY PRN Heartburn 05/06/25 08/29/25 History Lactobacillus acidophilus 10 10,000 mmu cells PO 3XWK 08/29/25 08/29/25 History billion cell capsule (Probiotic) clopidogrel 75 mg tablet 75 mg PO QAM 08/29/25 08/29/25 History coenzyme Q10 100 mg capsule 100 mg PO DAILY 08/29/25 08/29/25 History cyanocobalamin (vitamin B-12) 1,000 mcg PO QAM 08/29/25 08/29/25 History 1,000 mcg tablet (Vitamin B-12) magnesium oxide 400 mg PO QAM 08/29/25 08/29/25 History omega-3 fatty acids 1,000 mg 1,000 mg PO QAM 08/29/25 08/29/25 History capsule pseudoephedrine HCl 60 mg tablet 60 mg PO DAILY PRN Congestion 08/29/25 08/29/25 History rosuvastatin 40 mg tablet 40 mg PO QAM 08/29/25 08/29/25 History Past Med/Surg History Problem List (Updated 08/29/25 @ 17:01 by Selvin Kraft DO) Anemia (Acute) Dark stools (Acute) Hyperlipidemia Encounter for general adult medical examination with abnormal findings Prostate cancer (Chronic 02/03/25) Migraine without aura Cervical disc disease Vitamin deficiency Headache Occipital neuralgia Facial paresthesia Frequent headaches Cognitive dysfunction Atypical nevus Elevated PSA (Chronic) Chronic rhinosinusitis Dyslipidemia Obstructive sleep apnea CAD (coronary artery disease) (Acute) Seasonal allergies GERD (gastroesophageal reflux disease) Vitamin D deficiency Medical History (Reviewed 05/03/25 @ 14:08 by Augustine Hodge Jr, MD, [facility]) Deviated septum Alopecia Kidney stone Scoliosis History of ID (myocardial infarction) Cognitive dysfunction History of elevated PSA Hx of melanoma of skin Occipital neuralgia CAD (coronary artery disease) Facial paresthesia Hx of gastroesophageal reflux (GERD) Frequent headaches ASHER (obstructive sleep apnea) Dyslipidemia Allergic rhinitis Chronic sinusitis Dysfunction of both eustachian tubes Orthostatic lightheadedness Postnasal drip Myocardial infarction Surgical History History of surgery Hx of melanoma excision History of esophagogastroduodenoscopy (EGD) Hx of colonoscopy S/P coronary artery stent placement Family History Mother Pneumonia Diabetes Father Thymic carcinoma Brother Melanoma Scleroderma Sister No problems noted. Son No problems noted. Daughter No problems noted. Other Cancer Denies family history of Coronary heart disease Social History (Updated 06/02/25 @ 12:49 by oRs Munoz) Smoking Status: Never smoker Tobacco Type: Cigarettes Age Started Using Tobacco: 16; Age Quit Using Tobacco: 42; packs per day: 0.25; Second Hand Exposure: Yes (hx growing up); Do You Dip or Chew Tobacco: No; Hx Alcohol Use: Yes (1-2 drinks/day) Alcohol type: beer and hard liquor Alcohol Intake Frequency: 4 or More x per/Week Hx Substance Use: No Preferred Language: Swazi Communication Ability: Effective Visual Impairment: Limited Hearing Ability: Normal Plumber'S Assistant Required: No Beliefs That Will Affect Care: None marital status: Current Living Situation: Alone current occupational status: employed 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 How many Children do You have Comment: 1 step child other: Professor,[employer],Engineering Feels Safe at Home: Yes Childhood Exposure to Second-Hand Smoke: Yes Diet: regular caffeine: Yes during the past year weight has: remained stable Dental Care, Regularly: Yes Physical Activity Frequency: Daily Seatbelt Use: always Sunscreen Use: Yes Assistive Devices: CPAP, Glasses and Other Review of Systems Review of Systems: Aside from that noted above a full 10 point review of systems was conducted and was negative acute recent Physical Exam Physical Exam: GENERAL: Sitting up in bed, alert, well appearing, well nourished, no distress, EYE EXAM: normal conjunctiva. Sclera clear OROPHARYNX: no exudate, no erythema, lips, buccal mucosa, and tongue normal and mucous membranes are moist LUNGS: Clear to auscultation. Normal chest wall mechanics HEART: no murmurs, S1 normal and S2 normal ABDOMEN: abdomen soft, non-tender, normo-active bowel sounds, no masses, no rebound or guarding. SKIN: no rashes and no bruising, no pallor LOWER EXTREMITIES: No pitting edema. NEURO EXAM: Normal sensorium, cranial nerves II-XII grossly intact, normal speech, no gross weakness of arms, no gross weakness of legs. Results & Data Results & Data Vital Signs (Past 12 Hours) Vital Signs Temp Pulse Resp BP Pulse Ox O2 Del Method 08/29/25 15:50 68 08/29/25 13:55 Room Air 08/29/25 13:43 36.4 C L 80 18 126/84 98 Room Air Laboratory Results 08/29/25 08/29/25 15:05 14:16 WBC 9.34 RBC 4.19 L Hgb 12.8 L Hct 37.8 L MCV 90.2 MCH 30.5 MCHC 33.9 RDW Std Deviation 39.9 RDW Coeff of Pamela 12.3 Plt Count 195 MPV 11.3 Immature Gran % (Auto) 0.3 Neut % (Auto) 60.9 Lymph % (Auto) 29.6 [place] % (Auto) 7.6 Eos % (Auto) 1.0 Baso % (Auto) 0.6 Neut # (Auto) 5.69 Lymph # (Auto) 2.76 [place] # (Auto) 0.71 H Eos # (Auto) 0.09 Baso # (Auto) 0.06 Immature Gran # (Auto) 0.03 Sodium 139 Potassium 3.7 Chloride 106 Carbon Dioxide 26 Anion Gap 7 BUN 14 Creatinine 0.74 Est Cr Clr Drug Dosing 109.2 eGFR 98.70 BUN/Creatinine Ratio 18.9 Glucose 101 H Calcium 8.6 Total Bilirubin 0.5 AST 18 ALT 17 Alkaline Phosphatase 53 Total Protein 6.1 Albumin 4.2 Globulin 1.9 L Albumin/Globulin Ratio 2.2 H Lipase 80 Urine Color Yellow Urine Appearance Clear Urine pH 7.0 Ur Specific [place] 1.010 Urine Protein Negative Urine Glucose (UA) Negative Urine Ketones Negative Urine Blood Negative Urine Nitrite Negative Urine Bilirubin Negative Urine Urobilinogen Negative Ur Leukocyte Esterase Negative Urine Comment Diagnostic Findings CT ABD PELV: Read Pending at the time of admission PG Care Time/CCT Total # of Minutes Spent Total Time Spent with Patient: Total time spent is greater than 50% in coordination of care (as documented) at patient's floor/unit and/or counseling patient: Coding Level of Care Code 29110 INT INP/OBS CARE 2/55MIN Diagnoses Dark stools R19.5 Anemia D64.9 Anemia type: unspecified type Prostate cancer C61 Migraine without aura G43.009 Dyslipidemia E78.5 Obstructive sleep apnea G47.33 CAD (coronary artery disease) I25.10 Hx of melanoma of skin Z85.820 Hx of gastroesophageal reflux (GERD) Z87.19 (2) Anemia Anemia type: unspecified type Qualified Code(s): D64.9 - Anemia, unspecified
[2025-08-29] MEDS: PANTOprazole 40 MG in DEXTROSE 5% MINI-B 100 ML IV SCH (17:08)
[2025-08-29] MEDS: PANTOPRAZOLE BOLUS/DRIP IV STA (17:20)
--- NOTE | 2025-08-29 17:23 | CT Scan Report ---
CT ABDOMEN and PELVIS with INTRAVENOUS CONTRAST HISTORY: Abdominal pain TECHNIQUE: CT abdomen and pelvis with contrast. IV CONTRAST: 100 mL of OMNIPAQUE 300 ENTERIC CONTRAST: Not Given COMPARISON: None FINDINGS: LOWER CHEST: Mild coronary calcifications LIVER: No focal lesion identified. Hepatic steatosis and mild hepatomegaly. GALLBLADDER/BILIARY: Unremarkable gallbladder. No abnormal biliary dilatation. SPLEEN: Unremarkable. PANCREAS: 9 mm cystic change in the body of the pancreas may represent a sidebranch IPMN. ADRENALS: Unremarkable. KIDNEYS: Atrophic kidneys. Cortical and parapelvic cysts. No stones or hydronephrosis identified. PERITONEUM/RETROPERITONEUM. No lymphadenopathy by size criteria. No aortic aneurysm. GASTROINTESTINAL: No obstruction. There is long-segment wall thickening of the rectum and the anus. Colonic diverticulosis without evidence of diverticulitis. Normal appendix. REPRODUCTIVE: Unremarkable. URINARY BLADDER: Inflammatory changes with circumferential wall thickening. ABDOMINAL WALL: Fat-containing inguinal hernias BONES: No acute findings. IMPRESSION: Long-segment wall thickening of the rectum and the anus may be due to proctocolitis. Colonic diverticulosis without evidence of diverticulitis. Inflammatory changes of the renal bladder may be due to cystitis. Electronically signed by Rene Rios 08-29-2025 5:23 PM
[2025-08-29] MEDS ORDERED: ONDANSETRON INJ 2 MG/ML 2 ML VIAL IV PRN (17:56)
[2025-08-29] MEDS: SODIUM CHLORIDE 0.9% 1,000 ML IV SCH (18:30)
[2025-08-29 19:22] LABS: INR 1.0 (0.9-1.1); Partial Thromboplastin Time 24 Seconds (21-31); Prothrombin Time 10.6 Seconds (9.0-12.0)
--- NOTE | 2025-08-29 19:22 | Communication Note ---
Date of Service: August 29, 2025 Dark stool x 2-3 days, normal BUN/CR. HB 12.8 (usual 14-15) On Plavix, ASA and recent aleve. On Protonix drip Maintain NPO , follow H&H possible EGD am
--- NOTE | 2025-08-30 07:35 | Gastrointestinal Consultation ---
Date of Consultation August 30, 2025 Assessment & Plan (1) Dark stools: Potential melena. Risks for GI bleeding include aspirin Plavix and recent NSAID use. Family history of peptic ulcer disease. EGD. He is NPO. However his CT also suggest some thickening of the rectum and rectosigmoid area. May benefit from a flexible sigmoidoscopy also. (2) Anemia: Baseline hemoglobin 15.2. 12.8 on admission. (3) History of DC (myocardial infarction): Remote. On Plavix x 10 years. To be reviewed by the hospitalist service need for ongoing Plavix use. Potentially this will also depend on findings at endoscopy. Plan EGD today. 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 Has a history of heartburn indigestion. He is on aspirin Plavix and recently has been taking an NSAID for back pain. He had a colonoscopy performed by Dr. López in 11/13/2022. There was diverticulosis from sigmoid to ascending colon. He had a 4 mm polyp removed from the transverse colon. He has not had a previous EGD. Tells me there is a history of peptic ulcer disease and some second-degree relatives. No previous testing for H. pylori that he is aware Still having stools with blood. No orthostatic symptoms. Last hemoglobin 12.8. Baseline appears to be 15. Patient is NPO. He is on a Protonix drip. Plavix last taken prior to admission CT showed no upper findings. Though there was question of long segment wall thickening of the rectum and anus said potentially due to be proctocolitis. Allergies Allergy/AdvReac Type Severity Reaction Status Date / Time No Known Drug Allergies Allergy Unknown Verified 08/29/25 16:18 seasonal AdvReac Mild Congested Uncoded 08/29/25 16:18 Home Medications Medication Instructions Recorded Confirmed Type fluticasone propionate 50 1 sprays intranasal HS 07/17/19 08/29/25 History mcg/actuation nasal spray,suspension cholecalciferol (vitamin D3) 50 50 mcg PO QAM 05/18/22 08/29/25 History mcg (2,000 unit) capsule oxymetazoline 0.05 % nasal spray 2 spray intranasal Q12H PRN 09/04/22 08/29/25 History (Afrin (oxymetazoline)) Congestion nitroglycerin 0.4 mg sublingual 0.4 mg sublingual Q5M PRN chest 08/25/24 08/29/25 Rx tablet pain #40 tabs aspirin 81 mg tablet,delayed 81 mg PO QAM 08/28/24 08/29/25 History release famotidine 20 mg tablet (Pepcid) 20 mg PO DAILY PRN Heartburn 05/06/25 08/29/25 History Lactobacillus acidophilus 10 10,000 mmu cells PO 3XWK 08/29/25 08/29/25 History billion cell capsule (Probiotic) clopidogrel 75 mg tablet 75 mg PO QAM 08/29/25 08/29/25 History coenzyme Q10 100 mg capsule 100 mg PO DAILY 08/29/25 08/29/25 History cyanocobalamin (vitamin B-12) 1,000 mcg PO QAM 08/29/25 08/29/25 History 1,000 mcg tablet (Vitamin B-12) magnesium oxide 400 mg PO QAM 08/29/25 08/29/25 History omega-3 fatty acids 1,000 mg 1,000 mg PO QAM 08/29/25 08/29/25 History capsule pseudoephedrine HCl 60 mg tablet 60 mg PO DAILY PRN Congestion 08/29/25 08/29/25 History rosuvastatin 40 mg tablet 40 mg PO QAM 08/29/25 08/29/25 History Patient History Medical History Deviated septum Alopecia Kidney stone Scoliosis History of DC (myocardial infarction) Cognitive dysfunction History of elevated PSA Hx of melanoma of skin Occipital neuralgia CAD (coronary artery disease) Facial paresthesia Hx of gastroesophageal reflux (GERD) Frequent headaches ASHER (obstructive sleep apnea) Dyslipidemia Allergic rhinitis Chronic sinusitis Dysfunction of both eustachian tubes Orthostatic lightheadedness Postnasal drip Myocardial infarction Surgical History History of surgery Hx of melanoma excision History of esophagogastroduodenoscopy (EGD) Hx of colonoscopy S/P coronary artery stent placement Family History Mother Pneumonia Diabetes Father Thymic carcinoma Brother Melanoma Scleroderma Sister No problems noted. Son No problems noted. Daughter No problems noted. 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 Required: No Beliefs That Will Affect Care: None marital status: Current Living Situation: Spouse current occupational status: employed 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 No unexplained weight loss. No dysphagia. Cardiovascular no recent chest pain respiratory no shortness of breath GI as noted above. MSK the back pain improved after NSAIDs Review of systems as per admitting H&P reviewed without change Physical Exam Physical Exam: Patient examined at the bedside. Sleeping arouses to voice. Does not appear acutely ill or toxic The eyes reveal no jaundice Chest and heart exams per admitting H&P reviewed without change Abdomen is benign. 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 Psych affect was normal Results & Data Vital Signs (Past 12 Hours) Vital Signs Temp Pulse Pulse Resp BP Pulse Ox O2 Del Method 08/30/25 07:05 36.5 C 75 20 106/76 99 Room Air 08/30/25 02:58 36.5 C 75 16 121/75 97 Room Air 08/29/25 23:38 36.5 C 20 100 Room Air 08/29/25 22:46 65 PG Care Time/CCT Total # of Minutes Spent Total Time Spent with Patient: Total time spent is greater than 50% in coordination of care (as documented) at patient's floor/unit and/or counseling patient: Coding Level of Care Code 86245 INT INP/OBS CARE 2/55MIN Diagnoses Dark stools R19.5 Anemia D64.9 Anemia type: unspecified type History of DC (myocardial infarction) I25.2 (2) Anemia Anemia type: unspecified type Qualified Code(s): D64.9 - Anemia, unspecified
--- NOTE | 2025-08-30 08:21 | Communication Note ---
Date of Service: August 30, [address] findings in the rectal area he states he has noted that his rectum or anal area feels tight for the last 6 months. Add flex sig onto the EGD.
[2025-08-30 08:34] LABS: Hematocrit (blood only) 37.5 % (42.0-52.0); Hemoglobin 12.6 g/dL (14.0-18.0)
--- NOTE | 2025-08-30 10:17 | Anesthesiology Consultation ---
Date of Service August 30, 2025 Assessment & Plan Chart Review Chart Review: Acceptable Risk for Surgery and Patient NOT seen in Pre Admission Testing Consults Requested none ASA ASA4 Proposed Anesthesia Anesthesia Type: MAC History Surgery Operation Date: 08/30/25 10:15 Proposed Procedures p Colonoscopy - Ezequiel Schreiber MD s Esophagogastroduodenoscopy - Ezequiel Schreiber MD Height/Weight Height: 5 ft 10 in Weight: 89.3 kg Allergies Allergy/AdvReac Type Severity Reaction Status Date / Time No Known Drug Allergies Allergy Unknown Verified 08/29/25 16:18 seasonal AdvReac Mild Congested Uncoded 08/29/25 16:18 Medications Home Medications Medication Instructions Recorded Confirmed Last Taken fluticasone propionate 50 1 sprays intranasal HS 07/17/19 08/29/25 08/28/25 mcg/actuation nasal spray,suspension cholecalciferol (vitamin D3) 50 50 mcg PO QAM 05/18/22 08/29/25 08/28/25 mcg (2,000 unit) capsule oxymetazoline 0.05 % nasal spray 2 spray intranasal Q12H PRN 09/04/22 08/29/25 Unknown (Afrin (oxymetazoline)) Congestion nitroglycerin 0.4 mg sublingual 0.4 mg sublingual Q5M PRN chest 08/25/24 08/29/25 Unknown tablet pain #40 tabs aspirin 81 mg tablet,delayed 81 mg PO QAM 08/28/24 08/29/25 08/28/25 release famotidine 20 mg tablet (Pepcid) 20 mg PO DAILY PRN Heartburn 05/06/25 08/29/25 Unknown Lactobacillus acidophilus 10 10,000 mmu cells PO 3XWK 08/29/25 08/29/25 Unknown billion cell capsule (Probiotic) clopidogrel 75 mg tablet 75 mg PO QAM 08/29/25 08/29/25 08/28/25 coenzyme Q10 100 mg capsule 100 mg PO DAILY 08/29/25 08/29/25 08/28/25 cyanocobalamin (vitamin B-12) 1,000 mcg PO QAM 08/29/25 08/29/25 08/28/25 1,000 mcg tablet (Vitamin B-12) magnesium oxide 400 mg PO QAM 08/29/25 08/29/25 08/28/25 omega-3 fatty acids 1,000 mg 1,000 mg PO QAM 08/29/25 08/29/25 08/28/25 capsule pseudoephedrine HCl 60 mg tablet 60 mg PO DAILY PRN Congestion 08/29/25 08/29/25 Unknown rosuvastatin 40 mg tablet 40 mg PO QAM 08/29/25 08/29/25 08/28/25 Active Medications Generic Name Dose Route Start Last Admin Trade Name Freq PRN Reason Stop Dose Admin Pantoprazole Sodium 40 mg/ 100 mls @ 20 mls/hr 08/29/25 16:15 08/30/25 08:25 Dextrose IV 09/28/25 16:14 8 mg/hr Q5H CRISPIN 20 mls/hr Administration 8 MG/HR Sodium Chloride 1,000 mls @ 80 mls/hr 08/29/25 17:56 08/30/25 07:33 Nss IV 09/01/25 17:55 80 mls/hr .[id number] CRISPIN Administration NPO Last Intake of Fluids Comment: unsure of time, had ice chips Past Medical History Medical History Deviated septum Alopecia Kidney stone Scoliosis History of CA (myocardial infarction) Cognitive dysfunction History of elevated PSA Being monitored for prostate cancer Hx of melanoma of skin Right upper arm, removed Occipital neuralgia Chronic CAD (coronary artery disease) Stent x1 (2015) Facial paresthesia Chronic Hx of gastroesophageal reflux (GERD) Frequent headaches ASHER (obstructive sleep apnea) CPAP (compliant) Dyslipidemia Allergic rhinitis Chronic sinusitis Dysfunction of both eustachian tubes Orthostatic lightheadedness Postnasal drip Chronic Myocardial infarction Follows with [facility] cardio Exercise / Class Metabolic Activity II 4-5 Yardwork/Stairs/Walk up hill Past Family History Family History Mother , 92yo Pneumonia Diabetes Father , 86yo Thymic carcinoma Brother Melanoma Scleroderma Sister No problems noted. Son No problems noted. Daughter No problems noted. Other Cancer Denies family history of Coronary heart disease Past Surgical History Surgical History History of surgery Ganglion cyst removed left wrist Hx of melanoma excision right upper arm History of esophagogastroduodenoscopy (EGD) Hx of colonoscopy S/P coronary artery stent placement Stent x1 (2016) Past Anesthesia History No Hx of Anesthesia Complications and No Family Hx of Anesthesia Complications History of PONV No Hx of PONV and No Hx of Motion Sickness Social History Smoking Status: Former smoker Do You Dip or Chew Tobacco: No Smoking End Date: 1994 Hx Alcohol Use: Yes Alcohol type: beer alcohol intake frequency: 0-2 drinks per day Hx Substance Use: No substance use type: former substance user and marijuana Physical Exam Vital Signs Last Vital Signs Temp 36.5 C 08/30/25 07:05 Pulse 63 08/30/25 09:00 Resp 20 08/30/25 07:05 BP 106/76 08/30/25 07:05 Pulse Ox 99 08/30/25 07:05 O2 Del Method Room Air 08/30/25 07:05 Testing Laboratory Results 08/30/25 08:12 08/29/25 14:16 PT 10.6 Seconds (9.0-12.0) 08/29/25 18:24 INR 1.0 (0.9-1.1) 08/29/25 18:24 APTT 24 Seconds (21-31) 08/29/25 18:24 Urine Color Yellow 08/29/25 15:05 Urine Appearance Clear (Clear) 08/29/25 15:05 Urine pH 7.0 (4.5-7.5) 08/29/25 15:05 Ur Specific [place] 1.010 (1.000-1.030) 08/29/25 15:05 Urine Protein Negative (Negative) 08/29/25 15:05 Urine Glucose (UA) Negative (Negative) 08/29/25 15:05 Urine Ketones Negative (Negative) 08/29/25 15:05 Urine Nitrite Negative (Negative) 08/29/25 15:05 Ur Leukocyte Esterase Negative (Negative) 08/29/25 15:05 Blood Type O Positive 08/29/25 14:16 Antibody Screen NEGATIVE 08/29/25 14:16 Electrocardiogram Date: 08/29/25 Findings: + NSR @ (@ 65)
[2025-08-30] MEDS ORDERED: ATROPINE SULFATE 0.1 MG/ML 10ML SYR IV PRN (10:26)
[2025-08-30] MEDS ORDERED: MIDAZOLAM HCL 1 MG/ML 2ML VIAL ONE (10:31)
--- NOTE | 2025-08-30 10:57 | Communication Note ---
Date of Service: August 30, 2025 EGD No blood noted in the upper GI tract. There is distal esophageal ulcer without stigmata of bleeding. Consistent with acid reflux. There were few linear erosions in the antrum which could be consistent with aspirin or NSAID effect. Biopsies for Helicobacter pylori. There was a very small punctate ulcer in the duodenum. This did not have stigmata of bleeding and would not be a definitive source for bleeding. Flexible sigmoidoscopy CT suggested abnormalities of the rectum and sigmoid This was not appreciated at flexible sigmoidoscopy. . There was old blood in the sigmoid colon. 2 small polyps of the left colon were seen and these were not removed and this would confuse the issue if there is further gastrointestinal bleeding at any rate he will require a full colonoscopy. Plan remain off Plavix for 10 to 14 days. Can take aspirin if required. Twice daily PPI therapy for 2 weeks and then 40 mg daily indefinitely. Outpatient c olonoscopy. Discharge tomorrow if hemoglobin stable. Definitive source of bleeding not identified.
--- NOTE | 2025-08-30 11:03 | GI REPORT ---
[facility] Patient: PEÑA SAMANO : 1955 Sex at : Male Age: 70 Years Procedure: Upper GI endoscopy Date: 08/30/2025 Attending Physician: Ezequiel Schreiber MD Referring MD: David Becerril MD Indications: - Suspected upper gastrointestinal bleeding - Melena Medications: - Monitored Anesthesia Care Complications: - No immediate complications. Estimated Blood Loss: - Estimated blood loss was minimal. Procedure: - The egd scope was introduced through the mouth and advanced to the second part of the duodenum. - The upper GI endoscopy was accomplished without difficulty. - The patient tolerated the procedure well. Findings: - LA Grade B (one or more mucosal breaks greater than 5 mm, not extending between the tops of two mucosal folds) esophagitis with no bleeding was found in the distal esophagus. - A few dispersed small erosions with no bleeding and no stigmata of recent bleeding were found in the gastric antrum. Biopsies were taken with a cold forceps for histology. - One non-bleeding cratered duodenal ulcer with no stigmata of bleeding was found in the duodenal bulb. The lesion was 4 mm in largest dimension. - Extensive search and passed through the postbulbar area on numerous occasions. No ulcer seen. No mucosal deformity Impression: - LA Grade B reflux esophagitis with no bleeding. - Erosive gastropathy with no bleeding and no stigmata of recent bleeding. Biopsied. - Non-bleeding duodenal ulcer with no stigmata of bleeding. - Extensive search and passed through the postbulbar area on numerous occasions. No ulcer seen. No mucosal deformity Recommendation: - Await pathology results. - Treat H. pylori if present. Avoid NSAIDs. Acetaminophen up to 2 g/day can be taken if needed for analgesia - Remain off Plavix for 10 to 14 days. Can be resumed after that timeframe if required by cardiology. Can continue aspirin at this time. - Twice daily PPI therapy for 2 weeks and then 40 mg/day indefinitely in this gentleman with dual antiplatelet agent ulcer and bleed - Flex sig today to evaluate abnormalities noted on CT scan Procedure Code(s): - 55390, Esophagogastroduodenoscopy, flexible, transoral; with biopsy, single or multiple Diagnosis Code(s): - K92.1, Melena (includes Hematochezia) - K21.00, Gastro-esophageal reflux disease with esophagitis, without bleeding - K31.89, Other diseases of stomach and duodenum - K26.9, Duodenal ulcer, unspecified as acute or chronic, without hemorrhage or perforation CPT(R) - 202 copyright [employer]. All Rights Reserved. The CPT codes, CCI edits and ICD codes generated are intended as suggestions and were generated based on input data. These codes are preliminary and upon street cleaner review may be revised to meet current compliance and payer requirements. The provider is responsible for the final determination of appropriate codes, and modifiers. Ezequiel Schreiber MD This document has been electronically signed. Note Initiated:08/30/2025 Note Completed:08/30/2025 11:02 AM Ezequiel Schreiber MD This document has been electronically signed. Note Amended:08/30/2025 11:21 AM \\[email or web address]\Results\[email or web address]\[id number].[email or web address]
--- NOTE | 2025-08-30 11:07 | GI REPORT ---
[facility] Patient: PEÑA SAMANO : 1955 Sex at : Male Age: 70 Years Procedure: Colonoscopy Date: 08/30/2025 Attending Physician: Ezequiel Schreiber MD Referring MD: Referred Self; David Becerril MD Indications: - Abnormal imaging GI bleeding - Abnormalities of the rectum and rectosigmoid for visualization - Abnormal imaging, GI bleed Medications: - Monitored Anesthesia Care Complications: - No immediate complications. Estimated Blood Loss: - Estimated blood loss: None. Procedure: - The egd scope was introduced through the anus and advanced to the sigmoid colon for evaluation. this was the intended extent. - The colonoscopy was performed without difficulty. - The quality of the bowel preparation was poor. Findings: - Two sessile polyps were found in the proximal rectum and sigmoid colon. The polyps were small (4-6 mm) in size. Not removed and this gentleman gastrointestinal bleeding - From the rectosigmoid through the sigmoid colon there was diverticulosis there was old blood red to maroon in color. Could not advance above the sigmoid colon due to inadequate preparation - Some scarring the anal canal no fissures fistulas identified. Impression: - No definite abnormalities of the rectum or sigmoid in regards to the imaging findings. There was diverticulosis and old blood. Potential this could represent a diverticular bleed. He had 2 small polyps that we did not remove as may confuse the clinical situation if further bleeding. In any way he will likely require full colonoscopy will review with the patient we can either proceed with an inpatient or outpatient colonoscopy. Clear liquids until clinical course established. A definitive source of bleeding was not identified - Preparation of the colon was poor. - From the rectosigmoid through the sigmoid colon there was diverticulosis there was old blood red to maroon in color. Could not advance above the sigmoid colon due to inadequate preparation - Some scarring the anal canal no fissures fistulas identified. - Two small (4-6 mm) polyps in the proximal rectum and in the sigmoid colon. - Not removed and this gentleman gastrointestinal bleeding - No specimens collected. Recommendation: - Observe for further bleeding. Potential discharge tomorrow. Outpatient colonoscopy. Inpatient colonoscopy if persistent evidence of bleeding re falling H&H or fresh blood Procedure Code(s): - 57223-02, Colonoscopy, flexible; diagnostic, including collection of specimen(s) by brushing or washing, when performed (separate procedure) Diagnosis Code(s): - D12.8, Benign neoplasm of rectum - D12.5, Benign neoplasm of sigmoid colon CPT(R) - 2024 copyright [employer]. All Rights Reserved. The CPT codes, CCI edits and ICD codes generated are intended as suggestions and were generated based on input data. These codes are preliminary and upon saloonkeeper review may be revised to meet current compliance and payer requirements. The provider is responsible for the final determination of appropriate codes, and modifiers. Ezequiel Schreiber MD This document has been electronically signed. Note Initiated:08/30/2025 Note Completed:08/30/2025 11:06 AM Ezequiel Schreiber MD This document has been electronically signed. Note Amended:08/30/2025 11:25 AM \\[email or web address]\Results\[email or web address]\[id number].pdf
--- NOTE | 2025-08-30 11:33 | Anesthesiology Progress Note ---
Date of Service August 30, 2025 Anesthesia Post Procedure Vital Signs Vital Signs: Temp Pulse Pulse Resp BP BP Pulse Ox 08/30/25 11:25 36.1 C L 78 16 116/76 98 08/30/25 11:15 36.1 C L 82 18 122/78 98 08/30/25 11:05 81 17 104/57 L 99 08/30/25 10:56 36.0 C L 75 17 94/50 L 100 08/30/25 09:00 63 08/30/25 07:05 36.5 C 75 20 106/76 99 08/30/25 02:58 36.5 C 75 16 121/75 97 08/29/25 23:38 36.5 C 20 100 08/29/25 22:46 65 08/29/25 19:22 36.6 C 65 18 123/82 99 08/29/25 17:56 36.7 C 16 131/82 99 08/29/25 17:55 70 08/29/25 16:00 70 20 121/78 98 08/29/25 15:50 68 08/29/25 15:45 69 16 132/83 98 08/29/25 13:55 08/29/25 13:43 36.4 C L 80 18 126/84 98 O2 Del Method O2 Flow Rate 08/30/25 11:25 Room Air 08/30/25 11:15 Room Air 08/30/25 11:05 Room Air 08/30/25 10:56 Oxymask 5 08/30/25 09:00 08/30/25 07:05 Room Air 08/30/25 02:58 Room Air 08/29/25 23:38 Room Air 08/29/25 22:46 08/29/25 19:22 Room Air 08/29/25 17:56 Room Air 08/29/25 17:55 08/29/25 16:00 Room Air 08/29/25 15:50 08/29/25 15:45 Room Air 08/29/25 13:55 Room Air 08/29/25 13:43 Room Air Transfer of Care Handoff Completed per policy Notes Mental Status: alert / awake / arousable Patient Amnestic to Procedure: Yes Nausea / Vomiting: adequately controlled Pain: adequately controlled Airway Patency, RR, SpO2: stable & adequate BP & HR: stable & adequate Hydration State: stable & adequate Anesthetic Complications: no major complications apparent
--- NOTE | 2025-08-30 12:25 | Communication Note ---
Date of Service: August 30, 2025 Patient seen postop. No signs or symptoms of complications. Reviewed finding of esophageal ulceration erosion and small duodenal ulcer with gastritis. No definite source for upper GI bleeding found. Flexible sigmoidoscopy old blood and diverticular disease 2 small polyps not removed. Observe over today. Possible discharge tomorrow. Prep for colonoscopy if evidence of recurrent or persistent bleeding. Patient needs outpatient colonoscopy
--- NOTE | 2025-08-30 13:01 | Hospitalist Progress Note ---
Date of Service August 30, 2025 Assessment & Plan (1) Dark stools: (2) Anemia: (3) Prostate cancer: (4) Migraine without aura: (5) Dyslipidemia: (6) Obstructive sleep apnea: (7) CAD (coronary artery disease): (8) Hx of melanoma of skin: (9) Hx of gastroesophageal reflux (GERD): Plan #Acute GI bleed #chronic anticoagulation - Started 2-3 days ago. He has never had this in the past. Several risk factors for upper GI bleed, recent increase in Aleve use, occasional alcohol exposure. On both aspirin and Plavix chronically. - Serial hemoglobin 6 PM, 6 AM, stable trend thus far no evidence of active bleeding on endoscopy - Continue Protonix drip, endoscopy with esophageal ulceration erosion and small duodenal ulcer with gastritis. Flex sig unremarkable. Consider colonoscopy if bleeding returns or evidence of ongoing bleed is present - Appreciate gastroenterology mgmt #History of coronary disease - Left diagonal stenting with residual disease in 2016, long-term Plavix and aspirin - Stable for many years, able to complete 4 METS without difficulty, no recent change in exercise or stamina - Hold Plavix and aspirin for the short-term, consult to cardiology for assistance with anticoagulation #GERD - hold famotidine, Protonix as above #Hyperlipidemia -Will resume statin once he is not n.p.o. #History of prostate cancer - Low-grade, following with oncology, no further evaluation necessary at this time #Migraine without aura -Asymptomatic, not on a preventative medication at this time, initiate Tylenol if needed, Ultram versus oxycodone if needed #ASHER -He does use CPAP at home. He states it is not unusual for him to go several days without. Order placed for him to use his home machine if he wants #FEN - n.p.o., NS at 80 cc/h overnight #Prophylaxis -SCDs #CODE STATUS -Full code per his wishes, reviewed with patient at the bedside at the time of admission Admission and Anticipated Discharge Date Admission Date: August 29, 2025 Subjective Doing okay this morning. No significant recurrence of GI bleed overnight. Limited bowel activity. No pain or discomfort. endoscopy and flexible sigmoidoscopy completed by GI this morning. I saw him in evaluation prior to study he was doing well. No new events or concerns. No concerns per nursing staff Physical Exam Physical Exam: GENERAL: Sitting up in bed, alert, well appearing, well nourished, no distress, EYE EXAM: normal conjunctiva. Sclera clear OROPHARYNX: no exudate, no erythema, lips, buccal mucosa, and tongue normal and mucous membranes are moist LUNGS: Clear to auscultation. Normal chest wall mechanics HEART: no murmurs, S1 normal and S2 normal ABDOMEN: abdomen soft, non-tender, normo-active bowel sounds, no masses, no rebound or guarding. SKIN: no rashes and no bruising, no pallor LOWER EXTREMITIES: No pitting edema. NEURO EXAM: Normal sensorium, cranial nerves II-XII grossly intact, normal speech, no gross weakness of arms, no gross weakness of legs. Results & Data Results & Data Vital Signs (Past 12 Hours) Vital Signs Temp Pulse Pulse Resp BP Pulse Ox O2 Del Method 08/30/25 11:38 36.3 C L 77 18 126/79 797 H Room Air 08/30/25 11:25 36.1 C L 78 16 116/76 98 Room Air 08/30/25 11:15 36.1 C L 82 18 122/78 98 Room Air 08/30/25 11:05 81 17 104/57 L 99 Room Air 08/30/25 10:56 36.0 C L 75 17 94/50 L 100 Oxymask 08/30/25 09:00 63 08/30/25 07:05 36.5 C 75 20 106/76 99 Room Air 08/30/25 02:58 36.5 C 75 16 121/75 97 Room Air O2 Flow Rate 08/30/25 11:38 08/30/25 11:25 08/30/25 11:15 08/30/25 11:05 08/30/25 10:56 5 08/30/25 09:00 08/30/25 07:05 08/30/25 02:58 Laboratory Results 08/30/25 08/29/25 08/29/25 08:12 18:24 15:05 WBC RBC Hgb 12.6 L Hct 37.5 L MCV MCH MCHC RDW Std Deviation RDW Coeff of Pamela Plt Count MPV Immature Gran % (Auto) Neut % (Auto) Lymph % (Auto) Allen % (Auto) Eos % (Auto) Baso % (Auto) Neut # (Auto) Lymph # (Auto) Allen # (Auto) Eos # (Auto) Baso # (Auto) Immature Gran # (Auto) PT 10.6 INR 1.0 APTT 24 PTT Ratio 0.9 Sodium Potassium Chloride Carbon Dioxide Anion Gap BUN Creatinine Est Cr Clr Drug Dosing eGFR BUN/Creatinine Ratio Glucose Calcium Total Bilirubin AST ALT Alkaline Phosphatase Total Protein Albumin Globulin Albumin/Globulin Ratio Lipase Urine Color Yellow Urine Appearance Clear Urine pH 7.0 Ur Specific Dell 1.010 Urine Protein Negative Urine Glucose (UA) Negative Urine Ketones Negative Urine Blood Negative Urine Nitrite Negative Urine Bilirubin Negative Urine Urobilinogen Negative Ur Leukocyte Esterase Negative Urine Comment Blood Type Antibody Screen 08/29/25 14:16 WBC 9.34 RBC 4.19 L Hgb 12.8 L Hct 37.8 L MCV 90.2 MCH 30.5 MCHC 33.9 RDW Std Deviation 39.9 RDW Coeff of Pamela 12.3 Plt Count 195 MPV 11.3 Immature Gran % (Auto) 0.3 Neut % (Auto) 60.9 Lymph % (Auto) 29.6 Allen % (Auto) 7.6 Eos % (Auto) 1.0 Baso % (Auto) 0.6 Neut # (Auto) 5.69 Lymph # (Auto) 2.76 Allen # (Auto) 0.71 H Eos # (Auto) 0.09 Baso # (Auto) 0.06 Immature Gran # (Auto) 0.03 PT INR APTT PTT Ratio Sodium 139 Potassium 3.7 Chloride 106 Carbon Dioxide 26 Anion Gap 7 BUN 14 Creatinine 0.74 Est Cr Clr Drug Dosing 109.2 eGFR 98.70 BUN/Creatinine Ratio 18.9 Glucose 101 H Calcium 8.6 Total Bilirubin 0.5 AST 18 ALT 17 Alkaline Phosphatase 53 Total Protein 6.1 Albumin 4.2 Globulin 1.9 L Albumin/Globulin Ratio 2.2 H Lipase 80 Urine Color Urine Appearance Urine pH Ur Specific Dell Urine Protein Urine Glucose (UA) Urine Ketones Urine Blood Urine Nitrite Urine Bilirubin Urine Urobilinogen Ur Leukocyte Esterase Urine Comment Blood Type O Positive Antibody Screen NEGATIVE PG Care Time/CCT Total # of Minutes Spent Total Time Spent with Patient: Total time spent is greater than 50% in coordination of care (as documented) at patient's floor/unit and/or counseling patient: Coding Level of Care Code 72261 SUB INP/OBS CARE 2/35MIN Diagnoses Dark stools R19.5 Anemia D64.9 Anemia type: unspecified type Prostate cancer C61 Migraine without aura G43.009 Dyslipidemia E78.5 Obstructive sleep apnea G47.33 CAD (coronary artery disease) I25.10 Hx of melanoma of skin Z85.820 Hx of gastroesophageal reflux (GERD) Z87.19 (2) Anemia Anemia type: unspecified type Qualified Code(s): D64.9 - Anemia, unspecified
--- NOTE | 2025-08-30 14:37 | Cardiology Consultation ---
Date of Consultation August 30, 2025 Assessment & Plan (1) CAD (coronary artery disease): (2) S/P coronary artery stent placement: (3) Anemia: (4) GI bleed: (5) Dyslipidemia: Plan ASSESSMENT/PLAN: 1. CAD s/p Diagonal PCI (2015): No angina or heart failure symptoms. Discussed with GI attending, Dr. Schreiber, antiplatelet therapy. He was agreeable for aspirin 81 mg daily. Can discontinue Plavix from a cardiology standpoint. Continue high intensity statin therapy. 2. GI bleed with acute blood loss anemia: Mild anemia. As per GI and primary hospitalist service. Underwent EGD and limited colonoscopy today. Can discontinue Plavix from a cardiology perspective. 3. Dyslipidemia: Continue high intensity statin therapy. 4. Disposition: Cardiology will sign off at this time. No acute cardiology issue. He can continue to follow-up with his primary tree climber, Dr. Hodge. Recommendations communicated with primary hospitalist, Dr. Becerril, and patient care discussed with GI attending as noted. Thank you for allowing me to participate in the care of your patient. Please call for any other questions or concerns. Sincerely, Jerzy Herrera M.D. History of Present Illness Reason for Consultation: "Known CAD, S/P Stent in 2015, GIB" Requesting Physician: David Becerril MD Attending Physician: David Becerril MD History of Present Illness Mr. Sparrow is a 70-year-old gentleman with a history significant for CAD s/p diagonal PCI, dyslipidemia, and sleep apnea on CPAP nightly. His primary tree climber is Dr. Hodge. He was admitted on 08/29/2025 with GI bleed. He has been experiencing dark bloody stools. He has been seen by GI and underwent endoscopy today which reported esophagitis, erosive gastropathy, and nonbleeding duodenal ulcer. There was no noted bleeding. Limited colonoscopy reported polyps and diverticul osis. He denies chest pain, shortness of breath, syncope, near syncope, palpitations, edema. He is active, and purposely climbs 2 flights of stairs to go to his office for work. He also rides his e-bike 100 miles per week, if weather permits. He has been using aspirin and Plavix chronically. He underwent PCI in 11/07/2015. Due to arthritis, he had been taking Aleve with recent travels. He has had the following studies/procedures: 1. Cardiac cath 11/07/2015: Proximal LAD 30%; mid LAD 50% and 30%. Diagonal 100%. Proximal circumflex 30%. Anterior takeoff of RCA within the right coronary cusp. Distal RCA 30%. Underwent PCI of diagonal with 2.5 x 15 mm Xience QUE. 2. Echo 2015: Normal LV systolic function. Moderate anterolateral hypokinesis. No significant valvular abnormalities. Review of systems: As above. Family history: No known premature CAD. Social history: Quit smoking at the age of 42. 1 beer per day. and lives at home with his . 2 biologic children and 1 stepchild. 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 Unaccompanied. Allergies Allergy/AdvReac Type Severity Reaction Status Date / Time No Known Drug Allergies Allergy Unknown Verified 08/29/25 16:18 pollen extracts Allergy Unknown Verified 08/30/25 10:28 Home Medications Medication Instructions Recorded Confirmed Type fluticasone propionate 50 1 sprays intranasal HS 07/17/19 08/29/25 History mcg/actuation nasal spray,suspension cholecalciferol (vitamin D3) 50 50 mcg PO QAM 05/18/22 08/29/25 History mcg (2,000 unit) capsule oxymetazoline 0.05 % nasal spray 2 spray intranasal Q12H PRN 09/04/22 08/29/25 History (Afrin (oxymetazoline)) Congestion nitroglycerin 0.4 mg sublingual 0.4 mg sublingual Q5M PRN chest 08/25/24 08/29/25 Rx tablet pain #40 tabs aspirin 81 mg tablet,delayed 81 mg PO QAM 08/28/24 08/29/25 History release famotidine 20 mg tablet (Pepcid) 20 mg PO DAILY PRN Heartburn 05/06/25 08/29/25 History Lactobacillus acidophilus 10 10,000 mmu cells PO 3XWK 08/29/25 08/29/25 History billion cell capsule (Probiotic) clopidogrel 75 mg tablet 75 mg PO QAM 08/29/25 08/29/25 History coenzyme Q10 100 mg capsule 100 mg PO DAILY 08/29/25 08/29/25 History cyanocobalamin (vitamin B-12) 1,000 mcg PO QAM 08/29/25 08/29/25 History 1,000 mcg tablet (Vitamin B-12) magnesium oxide 400 mg PO QAM 08/29/25 08/29/25 History omega-3 fatty acids 1,000 mg 1,000 mg PO QAM 08/29/25 08/29/25 History capsule pseudoephedrine HCl 60 mg tablet 60 mg PO DAILY PRN Congestion 08/29/25 08/29/25 History rosuvastatin 40 mg tablet 40 mg PO QAM 08/29/25 08/29/25 History Problem List (Updated 08/30/25 @ 14:45 by Waqar Herrera MD) GI bleed Anemia (Acute) Dark stools (Acute) Hyperlipidemia Encounter for general adult medical examination with abnormal findings Prostate cancer (Chronic 02/03/25) Migraine without aura Cervical disc disease Vitamin deficiency Headache Occipital neuralgia Facial paresthesia Frequent headaches Cognitive dysfunction Atypical nevus Elevated PSA (Chronic) Chronic rhinosinusitis Dyslipidemia Obstructive sleep apnea CAD (coronary artery disease) (Acute) Seasonal allergies GERD (gastroesophageal reflux disease) Vitamin D deficiency Patient History Medical History Deviated septum Alopecia Kidney stone Scoliosis History of [place] (myocardial infarction) Cognitive dysfunction History of elevated PSA Being monitored for prostate cancer Hx of melanoma of skin Right upper arm, removed Occipital neuralgia Chronic CAD (coronary artery disease) Stent x1 (2015) Facial paresthesia Chronic Hx of gastroesophageal reflux (GERD) Frequent headaches ASHER (obstructive sleep apnea) CPAP (compliant) Dyslipidemia Allergic rhinitis Chronic sinusitis Dysfunction of both eustachian tubes Orthostatic lightheadedness Postnasal drip Chronic Myocardial infarction Follows with [facility] cardio Surgical History History of surgery Ganglion cyst removed left wrist Hx of melanoma excision right upper arm History of esophagogastroduodenoscopy (EGD) Hx of colonoscopy S/P coronary artery stent placement Stent x1 (2015) Family History Mother , 92yo Pneumonia Diabetes Father , 86yo Thymic carcinoma Brother Melanoma Scleroderma Sister No problems noted. Son No problems noted. Daughter No problems noted. Other Cancer Denies family history of Coronary heart disease Social History (Updated 06/02/25 @ 12:49 by Ros Munoz) Smoking Status: Former smoker Tobacco Type: Cigarettes Age Started Using Tobacco: 16; Age Quit Using Tobacco: 42; packs per day: 0.25; Smoking End Date: 1994; Second Hand Exposure: Yes (hx growing up); Do You Dip or Chew Tobacco: No; Hx Alcohol Use: Yes Alcohol type: beer Alcohol Intake Frequency: 4 or More x per/Week Hx Substance Use: No Preferred Language: Hungarian Communication Ability: Effective Visual Impairment: Limited Hearing Ability: Normal Vacuum Evaporation Operator Required: No Beliefs That Will Affect Care: None marital status: Current Living Situation: Spouse current occupational status: employed 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 Alert and oriented. HEENT: Anicteric sclera. Neck: No JVD. No bruits. Normal carotid upstrokes bilaterally. Cardiac: Regular. Normal S1-S2. No murmurs, rubs, or gallops. Pulmonary: Clear to auscultation bilaterally without wheezes, rales, or rhonchi. Abdomen: Soft, nontender, nondistended, with normoactive bowel sounds. No bruits noted. Extremities: 2+ radial pulses bilaterally. 2+ posterior tibialis pulses bilaterally. No edema or cyanosis. Results & Data Vital Signs (Past 12 Hours) Vital Signs Temp Pulse Pulse Resp BP Pulse Ox O2 Del Method 08/30/25 14:33 78 08/30/25 11:38 36.3 C L 77 18 126/79 797 H Room Air 08/30/25 11:25 36.1 C L 78 16 116/76 98 Room Air 08/30/25 11:15 36.1 C L 82 18 122/78 98 Room Air 08/30/25 11:05 81 17 104/57 L 99 Room Air 08/30/25 10:56 36.0 C L 75 17 94/50 L 100 Oxymask 08/30/25 09:00 63 08/30/25 07:05 36.5 C 75 20 106/76 99 Room Air 08/30/25 02:58 36.5 C 75 16 121/75 97 Room Air O2 Flow Rate 08/30/25 14:33 08/30/25 11:38 08/30/25 11:25 08/30/25 11:15 08/30/25 11:05 08/30/25 10:56 5 08/30/25 09:00 08/30/25 07:05 08/30/25 02:58 Laboratory Results Laboratory Results - last 24 hr 08/29/25 08/29/25 08/29/25 14:16 15:05 18:24 Hgb Hct PT 10.6 INR 1.0 APTT 24 PTT Ratio 0.9 Sodium 139 Potassium 3.7 Chloride 106 Carbon Dioxide 26 Anion Gap 7 BUN 14 Creatinine 0.74 Est Cr Clr Drug Dosing 109.2 eGFR 98.70 BUN/Creatinine Ratio 18.9 Glucose 101 H Calcium 8.6 Total Bilirubin 0.5 AST 18 ALT 17 Alkaline Phosphatase 53 Total Protein 6.1 Albumin 4.2 Globulin 1.9 L Albumin/Globulin Ratio 2.2 H Lipase 80 Urine Color Yellow Urine Appearance Clear Urine pH 7.0 Ur Specific Bradford 1.010 Urine Protein Negative Urine Glucose (UA) Negative Urine Ketones Negative Urine Blood Negative Urine Nitrite Negative Urine Bilirubin Negative Urine Urobilinogen Negative Ur Leukocyte Esterase Negative Urine Comment Stool H. pylori Ag Pending Blood Type O Positive Antibody Screen NEGATIVE 08/30/25 08:12 Hgb 12.6 L Hct 37.5 L PT INR APTT PTT Ratio Sodium Potassium Chloride Carbon Dioxide Anion Gap BUN Creatinine Est Cr Clr Drug Dosing eGFR BUN/Creatinine Ratio Glucose Calcium Total Bilirubin AST ALT Alkaline Phosphatase Total Protein Albumin Globulin Albumin/Globulin Ratio Lipase Urine Color Urine Appearance Urine pH Ur Specific Bradford Urine Protein Urine Glucose (UA) Urine Ketones Urine Blood Urine Nitrite Urine Bilirubin Urine Urobilinogen Ur Leukocyte Esterase Urine Comment Stool H. pylori Ag Blood Type Antibody Screen Diagnostic Findings History and physical report reviewed. EGD and colonoscopy reports reviewed as summarized above in HPI. Communication reports reviewed. GI report reviewed. Telemetry personally reviewed: Sinus rhythm. Labs reviewed and notable for normal renal function, normal potassium, mild anemia (new), normal transaminase levels. CT abdomen/pelvis 08/29/2025: Long segment of wall thickening of the rectum and anus per radiology. ECG personally reviewed 08/29/2025: Sinus rhythm 65 bpm. Normal ECG. Outpatient cardiology note reviewed. Medications Administered Current Inpatient Medications Acetaminophen (Acetaminophen 325 Mg Tab) 650 mg PO Q4H PRN PRN Reason: Pain or Fever Stop: 09/28/25 17:55 Atropine Sulfate (Atropine Sulfate 0.1 Mg/Ml 10ml Syr) 0.5 mg IV Q1M PRN PRN Reason: PACU Use-HR<40 &/or Bradycardi Stop: 08/30/25 18:26 Ephedrine Sulfate (Ephedrine Sulfate 50 Mg/Ml Amp) 5 mg IV Q5M PRN PRN Reason: PACU Use Only-SBP<90 Stop: 08/30/25 18:26 Pantoprazole Sodium 40 mg/ (Dextrose) 100 mls @ 20 mls/hr IV Q5H [facility] Stop: 09/28/25 16:14 Last Admin: 08/30/25 08:25 Dose: 8 mg/hr, 20 mls/hr Sodium Chloride (Nss) 1,000 mls @ 80 mls/hr IV .[id number] [facility] Stop: 09/01/25 17:55 Last Admin: 08/30/25 07:33 Dose: 80 mls/hr Ondansetron HCl (Ondansetron Inj 2 Mg/Ml 2 Ml Vial) 4 mg IV Q6H PRN PRN Reason: Nausea Stop: 09/28/25 17:55 PG Care Time/CCT Total # of Minutes Spent Total Time Spent with Patient: Total time spent is greater than 50% in coordination of care (as documented) at patient's floor/unit and/or counseling patient: Coding Level of Care Code 01570 INT INP/OBS CARE 2/55MIN Diagnoses CAD (coronary artery disease) I25.10 S/P coronary artery stent placement Z95.5 Anemia D64.9 Anemia type: unspecified type GI bleed K92.2 Dyslipidemia E78.5 (3) Anemia Anemia type: unspecified type Qualified Code(s): D64.9 - Anemia, unspecified
--- NOTE | 2025-08-30 14:55 | Communication Note ---
Date of Service: August 30, 2025 UPDATE: Cardiology advised aspirin 81 mg daily. Can discontinue Plavix. David Becerril MD
[2025-08-30 18:26] LABS: Hematocrit (blood only) 35.2 % (42.0-52.0); Hemoglobin 11.7 g/dL (14.0-18.0)
[2025-08-31] MEDS: ACETAMINOPHEN 325 MG TAB PO PRN (02:04)
[2025-08-31 06:16] LABS: Hematocrit (blood only) 34.6 % (42.0-52.0); Hemoglobin 11.9 g/dL (14.0-18.0); Immature Granulocytes # (auto) 0.03 K/uL (0.01-0.20); Immature Granulocytes % (auto) 0.4 %; Mean Corpuscular Hemoglobin 31.4 pg (25.0-34.0); Mean Corpuscular Volume 91.3 fL (80.0-100.0); Platelet Count 206 K/uL (130-400); RDW Standard Deviation 40.2 fL (36.4-46.3); Red Blood Count 3.79 M/uL (4.70-6.10); White Blood Count 8.03 K/ul (4.8-10.8)
[2025-08-31 06:37] LABS: Alanine Aminotransferase 16.0 U/L (7-52); Albumin Globulin Ratio 2.1 (0.9-2); Albumin Level 3.9 gm/dl (3.4-5.0); Alkaline Phosphatase 50.0 U/L (34-104); Anion Gap 5.0 (3-11); Bilirubin,Total 0.5 mg/dl (0.2-1.0); Blood Urea Nitrogen 5.0 mg/dl (6-23); Calcium 8.5 mg/dl (8.6-10.3); Carbon Dioxide 28.0 mmol/L (21-32); Chloride 109.0 mmol/L (98-107); Creatinine Clr Calc Pharmacy 104.3 ml/min; Globulin 1.9 gm/dl (2.5-4.0); Glucose 121.0 mg/dl (70-99(Fasting)); Potassium 4.0 mmol/L (3.5-5.1); Sodium 142.0 mmol/L (136-145); Total Protein 5.8 gm/dl (6.0-8.3)
[2025-08-31 07:39] VITALS: BP 106/67; PULSE 70; RESP 16; TEMP 97.7; O2SAT 98
[2025-08-31] MEDS: ASPIRIN 81 MG ECTAB PO SCH (08:40)
--- NOTE | 2025-08-31 09:15 | Gastroenterology Progress Note ---
Date of Service August 31, 2025 Assessment & Plan (1) GI bleed: Plan Patient is feeling better. hgb stable. no further signs of bleeding. he is being discharged to home. Discussed case with Dr. Schreiber. - will plan for BID PPI x 2 weeks, then once daily indefinitely. - he is agreeable to an outpatient colonoscopy. Will have patient set up through our office. Admission and Anticipated Discharge Date Admission Date: August 29, 2025 Supervising Physician Co-Signing Physician Notes Hemoglobin stable. For discharge. 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 He requires outpatient colonoscopy and is agreeable. He did have 2 small polyps seen on limited flexible sigmoidoscopy. Gastric erosions no definite upper source of GI bleeding though expected site. Continue PPI therapy. Minimize NSAID use in this gentleman who takes blood thinners. I believe Plavix is stopped per cardiology. As long as he is on a baby aspirin a PPI is recommended. Subjective Patient is feeling well and tells me he has had no further signs of bleeding. no nausea, vomiting, abdominal pain. He tells me that he is being discharged to home. 08/31/25 hgb 11.9, hct 34.6. Review of Systems Review of Systems: All systems reviewed & are unremarkable except as noted in HPI & below Physical Exam Respiratory: normal respiratory effort. Psychiatric: A+Ox3, euthymic affect Results & Data Results & Data Vital Signs (Past 12 Hours) Vital Signs Temp Pulse Pulse Resp BP Pulse Ox O2 Del Method 08/31/25 07:38 97.7 F 70 16 106/67 98 Room Air 08/31/25 03:25 97.5 F L 78 18 114/71 100 Room Air 08/30/25 23:00 73 08/30/25 22:38 97.5 F L 77 18 138/75 99 Room Air Coding Level of Care Code 33168 SUB INP/OBS CARE 10/11MIN Diagnoses GI bleed K92.2
--- NOTE | 2025-08-31 10:09 | Discharge Summary ---
Discharge Summary Date of Service August 31, 2025 Principal Dx & Hospital Course #1 = Principal Diagnosis (1) Dark stools: (2) Anemia: (3) Prostate cancer: (4) Migraine without aura: (5) Dyslipidemia: (6) Obstructive sleep apnea: (7) CAD (coronary artery disease): (8) Hx of melanoma of skin: (9) Hx of gastroesophageal reflux (GERD): Plan #Acute GI bleed #chronic anticoagulation - Started 2-3 days ago. He has never had this in the past. Several risk factors for upper GI bleed, recent increase in Aleve use, occasional alcohol exposure. On both aspirin and Plavix chronically. - Serial hemoglobin 6 PM, 6 AM, stable trend thus far no evidence of active bleeding on endoscopy - Continue Protonix drip, endoscopy with esophageal ulceration erosion and small duodenal ulcer with gastritis. Flex sig unremarkable. Consider colonoscopy if bleeding returns or evidence of ongoing bleed is present - Appreciate gastroenterology mgmt -discharge on protonix 40mg BID for 2 weeks then 40mg daily -out patient colonoscopy arranged #History of coronary disease - Left diagonal stenting with residual disease in 2016, long-term Plavix and aspirin - Stable for many years, able to complete 4 METS without difficulty, no recent change in exercise or stamina - Hold Plavix and aspirin for the short-term, consult to cardiology for assistance with anticoagulation #GERD - hold famotidine, Protonix as above #Hyperlipidemia -Will resume statin once he is not n.p.o. #History of prostate cancer - Low-grade, following with oncology, no further evaluation necessary at this time #Migraine without aura -Asymptomatic, not on a preventative medication at this time, initiate Tylenol if needed, Ultram versus oxycodone if needed #ASHER -He does use CPAP at home. He states it is not unusual for him to go several days without. Order placed for him to use his home machine if he wants #FEN - n.p.o., NS at 80 cc/h overnight #Prophylaxis -SCDs #CODE STATUS -Full code per his wishes, reviewed with patient at the bedside at the time of admission Admission HPI Per Admitting Provider 70-year-old male history of coronary disease status post drug-eluting stent to the left prominent LAD diagonal in 2016., Hyperlipidemia, prostate cancer, obstructive sleep apnea migraine, DJD of the cervical spine, history of melanoma on long-term antiplatelet therapy for coronary disease presents with a 2 to 3- day history of "goopy dark stool" recently traveled to the . Notes that it has been very sticky. Seems to be getting looser and looser. Denies any chest pain palpitations or shortness of breath, he reports that he called into the positional and was told to go to the emergency department. Hemoglobin showed a 3 point decline compared to his baseline. He was loaded with Protonix, drip was initiated. Imaging completed, was referred for admission serial hemoglobin given concern for acute gastrointestinal hemorrhage. Additional relevant history: Patient states he has never had a GIB in the past has been on Plavix and aspirin since his stenting in 2016 no recent reevaluations or intervention from a cardiac standpoint he is physically active able to easily complete 4 METS with no shortness of breath. Has had no problem holding his Plavix for procedures in the past. Has been under quite a bit of stress over the last several weeks. Traveling to [place] and then to [place] for work from the [employer]. Had some back pain several weeks ago and was taking more Aleve than usual. Continued to take his aspirin. Has had some scattered alcoholic beverages from beers to cocktail but never more than 1 or 2 in a setting. No tobacco exposure. He has had no pain at any point in the last several days stools have been increasingly melanotic as noted above. Discharge Plan Discharge Items Patient Disposition: Home - Self-Care Reason For Visit: GI BLEED Discharge Diagnosis: GI bleed Condition on Discharge: Serious Activity: Resume your previous activity Non-emergency contact: Primary Care Provider Call non-emergency contact if: you have any medication questions Follow-up/Referrals: Kapil Connell MD [Primary Care Provider] - Diet: Regular Addtl Attending Provider Instructions: Follow up with GI for out patient colonoscopy and Cardiology in 2 weeks Pending Studies at Discharge: No Stand-Alone Forms: My [employer], Smoking Cessation Medications and DC Order Prescriptions: New pantoprazole [Protonix] 40 mg tablet,delayed release (DR/EC) 40 mg PO BID Qty: 60 0RF Continued famotidine [Pepcid] 20 mg tablet 20 mg PO DAILY PRN (Reason: Heartburn) nitroglycerin 0.4 mg tablet, sublingual 0.4 mg SL Q5M PRN (Reason: chest pain) Qty: 40 3RF Rx Instructions: PLACE ONE TABLET UNDER THE TONGUE EVERY 5 MINUTES FOR UP TO 3 DOSES NEEDED FOR CHEST PAIN fluticasone propionate 50 mcg/actuation spray,suspension 1 sprays INTNAS HS cholecalciferol (vitamin D3) 50 mcg (2,000 unit) capsule 50 mcg PO QAM oxymetazoline [Afrin (oxymetazoline)] 0.05 % spray,non-aerosol 2 spray intranasal Q12H PRN (Reason: Congestion) rosuvastatin 40 mg tablet 40 mg PO QAM coenzyme Q10 100 mg Capsule 100 mg PO DAILY Lactobacillus acidophilus [Probiotic] 10 billion cell Capsule 10,000 mmu cells PO 3XWK magnesium oxide 400 mg magnesium tablet 400 mg PO QAM omega-3 fatty acids 1,000 mg Capsule 1,000 mg PO QAM cyanocobalamin (vitamin B-12) [Vitamin B-12] 1,000 mcg Tablet 1,000 mcg PO QAM pseudoephedrine HCl 60 mg Tablet 60 mg PO DAILY PRN (Reason: Congestion) aspirin 81 mg tablet,delayed release (DR/EC) 81 mg PO QAM Discontinued clopidogrel 75 mg tablet 75 mg PO QAM Discharge Orders: Discharge Order (Routine); Ordered 08/31/25 Ordered By: Cruz Cleary Admission Data Admit Date/Time: 08/29/25 16:51 Attending Provider: Cruz Cleary Admit Provider: David Becerril Primary Care Provider: Kapil Connell. Other Providers: David Becerril; Waqar Herrera; Ezequiel Schreiber Hospital Stay Data Consultations 08/29/25 16:09 ED Decision to Admit Stat 08/29/25 17:56 Consult Cardiology Routine Consult Gastroenterology Routine Procedures Performed Operation Date: 08/30/25 10:15 Actual Procedures p Colonoscopy, Esophagogastroduodenoscopy with Biopsy(Not Applicable) - Ezequiel Schreiber MD Diagnostic Imagining Performed 08/29/25 13:55 CT abd pelvis IV con only Stat Pending Results Patient Have Any Pending Studies at Discharge: No Discharge Instructions Given to Patient (Per Discharging Provider) Follow up with GI for out patient colonoscopy and Cardiology in 2 weeks Total Time Total Time Spent Total Time Spent (In Minutes): 50 Coding Level of Care Code 80606 INP/OBS DISCH >30 MIN Diagnoses Dark stools R19.5 Anemia D64.9 Anemia type: unspecified type Prostate cancer C61 Migraine without aura G43.009 Dyslipidemia E78.5 Obstructive sleep apnea G47.33 CAD (coronary artery disease) I25.10 Hx of melanoma of skin Z85.820 Hx of gastroesophageal reflux (GERD) Z87.19
--- NOTE | 2025-08-31 22:34 | Electrocardiogram Report ---
Test Reason : Blood Pressure : */* mmHG Vent. Rate : 65 BPM Atrial Rate : 65 BPM P-R Int : 160 ms QRS Dur : 98 ms QT Int : 400 ms P-R-T Axes : 41 -17 29 degrees QTcB Int : 416 ms Normal sinus rhythm Normal ECG When compared with ECG of 21-Jul-2024 09:55, No significant change was found Confirmed by Waqar Herrera ([id number]) on 08/31/2025 10:34:12 PM Referred By: REFERRED SELF Confirmed By: Waqar Herrera
== END 2025-08-31 10:36 | disposition home or self-care (01) | DRG 813 ==
LOC: SUATTDRO → ED 13:42 → 2S 16:51 → SUATTDRO 16:51 → INTOOBSV 16:51 → 2S 17:38